=== PATIENT | female | born 1950 | race Caucasian/White ===

== ENCOUNTER → 2017-02-01 | Outpatient (CLI) | payer BC ==
[~2017-02-01] MED LIST: ASPI81TA28 PO; BECL1AER5 NAE; BIOT1CAP8 PO; BIOT300T2 PO; CAL1CHW4 PO; CHOL100010 PO; CLC6 PO; CYCL0.052 OP; IBUP-1105 PO; NAPR1CAP12 PO; OMEG10007 PO; PRED1SUS3 OP; PRT40 PO; QSTP PO; SIMV20TA2 PO; VTMD1000 PO
--- NOTE | 2017-02-01 11:22 | DIAGNOSTIC IMAGING REPORT ---
THYROID ULTRASOUND HISTORY: Nodule MULTI NODULE GOITER COMPARISON: September 15, 2016 FINDINGS: Right lobe: Mild in homogeneity. Several low suspicion sub-5 mm nodular densities and changed. Left lobe: Unlikely prior examination, the current study appears to demonstrate a CT of inhomogeneous tissue occupying the bulk of the left thyroid. This may extend to the left lateral thyroid isthmus. In retrospect this is similar as compared to the prior study. Patient gives a history of multiple biopsies to the left thyroid lobe at outside institution. Isthmus: No nodules. IMPRESSION: 1. Findings consistent with inhomogeneous thyroid tissue bilaterally with a dominant potential nodule or region of the left thyroid similar compared to the prior study. This is biopsy-proven negative per patient. 2. Given the history of a negative biopsy result, and in the absence of multiple discrete targets, it was elected to recommend a six-month follow-up rather than repeat biopsy. 3. Prior biopsy images/targets was not provided. Electronically signed by: Jarrod Robins M.D. 02/01/2017 11:20 AM Dictated Date/Time: 02/01/2017 11:14 AM
== END | disposition home or self-care (01) ==
LOC: C.ULTR 09:18
PROVIDERS: ATTEND Internal Medicine Endocrinology, Diabetes & Metabolism
DX: E04.2 Nontoxic multinodular goiter (principal)

== ENCOUNTER 2017-02-28 16:18 | Inpatient (IN) | payer BC ==
[~2017-02-28] VITALS: Ht 154.9 cm; Wt 59.5 kg
[~2017-02-28 16:18] MED LIST changes: -BECL1AER5 NAE; -BIOT1CAP8 PO; -BIOT300T2 PO; -CAL1CHW4 PO; -CHOL100010 PO; -CLC6 PO; -IBUP-1105 PO; -NAPR1CAP12 PO; -OMEG10007 PO; -PRED1SUS3 OP; -VTMD1000 PO
[2017-02-28] MEDS ORDERED: KETOROLAC TROMETHAMINE 30 MG/ML VIAL IV STA (16:51)
[2017-02-28] MEDS ORDERED: MoRPHine SULFATE 2 MG/ML CARP IV STA (16:51)
[2017-02-28] MEDS ORDERED: ONDANSETRON INJ 2 MG/ML 2 ML VIAL IV STA ×2 (16:51→19:32)
[2017-02-28 17:02] LABS: BASO % 0.1 %; BASO ABS # 0.01 K/uL (0-0.2); COMPLETE YES; EOS % 0.3 %; HEMATOCRIT 40.2 % (37-47); IG% 0.3 %; LYMPH % 12.5 %; MEAN CELL VOLUME 83.8 fL (80-100); MEAN CORPUSCULAR HEMOGLOBIN 29.2 pg (25-34); MEAN CORPUSCULAR HGB CONC 34.8 g/dl (32-36); MEAN PLATELET VOLUME 9.3 fL (7.4-10.4); MONO % 9.2 %; NEUT % 77.6 %; PLATELET COUNT 214 K/uL (130-400); WHITE BLOOD COUNT 7.18 K/uL (4.8-10.8)
[2017-02-28] MEDS ORDERED: BECL1AER5 NAE (17:02)
[2017-02-28] MEDS ORDERED: CAL1CHW4 PO (17:02)
[2017-02-28] MEDS ORDERED: OMEG10007 PO (17:02)
[2017-02-28] MEDS ORDERED: BIOT300T2 PO (17:02)
[2017-02-28] MEDS ORDERED: VTMD1000 PO (17:02)
[2017-02-28] MEDS ORDERED: PRED1SUS3 OP (17:02)
[2017-02-28] MEDS ORDERED: NAPR1CAP12 PO (17:02)
[2017-02-28 17:14] LABS: PROTHROMBIN TIME (PATIENT) 10.6 SECONDS (9.0-12.0)
[2017-02-28 17:16] LABS: ALT/SGPT 40 U/L (12-78); AST/SGOT 24 U/L (15-37); BLOOD UREA NITROGEN 10 mg/dl (7-18); BUN/CREATININE RATIO 12.5 (10-20); CARBON DIOXIDE 29 mmol/L (21-32); CHLORIDE 106 mmol/L (98-107); CREATININE 0.78 mg/dl (0.60-1.20); GLUCOSE 94 mg/dl (70-99); MAGNESIUM 2.5 mg/dl (1.8-2.4); POTASSIUM 3.5 mmol/L (3.5-5.1); SODIUM 140 mmol/L (136-145)
[2017-02-28 17:21] LABS: ALB/GLOB RATIO 0.9 (0.9-2); ALKALINE PHOSPHATASE 76 U/L (45-117)
--- NOTE | 2017-02-28 18:33 | DIAGNOSTIC IMAGING REPORT ---
LEFT RIBS UNILATERAL WITH PA CHEST CLINICAL HISTORY: Left-sided chest pain. Short of breath. COMPARISON STUDY: Chest 10/28/2014. FINDINGS: No pleural effusions. The heart is enlarged. Low lung volumes. Diffuse interstitial thickening persists. Left basilar density with a possible trace left pleural effusion. No rib fractures. No pneumothorax. IMPRESSION: 1. No rib fractures. No pneumothorax. 2. Suspect a trace left pleural effusion with patchy densities within the left lung base. This could represent atelectasis or pneumonia. 3. Diffuse interstitial thickening, unchanged. Electronically signed by: Alonzo Blackmon M.D. 02/28/2017 6:31 PM Dictated Date/Time: 02/28/2017 6:29 PM
[2017-02-28] MEDS ORDERED: MoRPHine SULFATE 2 MG/ML CARP ONE (19:19)
[2017-02-28] MEDS ORDERED: SODIUM CHLORIDE 0.9% 500ML 500 ML IV STA ×2 (19:32→19:41)
[2017-02-28] MEDS ORDERED: DiphenhydrAMINE HCL 50 MG/ML VIAL IV STA ×2 (19:32→20:33)
[2017-02-28] MEDS ORDERED: NALOXONE HCL 0.4 MG/1 ML VIAL/CARP IV STA (19:34)
[2017-02-28] MEDS ORDERED: DiphenhydrAMINE HCL 50 MG/ML VIAL ONE (19:39)
[2017-02-28] MEDS ORDERED: NALOXONE HCL 0.4 MG/1 ML VIAL/CARP ONE (19:40)
[2017-02-28] MEDS ORDERED: DEXAMETHASONE SOD INJ 10 MG/ML VIAL IV ONE (19:45)
[2017-02-28] MEDS ORDERED: SUCRALFATE 1 GM/10 ML UDC PO ONE (20:45)
--- NOTE | 2017-02-28 21:07 | EMERGENCY ROOM VISIT NOTE ---
ED Visit Note First contact with patient: 16:23 Staff note: I have reviewed the Patients chart and have discussed this case with my PA. I generally agree with the ED note and findings.
[2017-02-28] MEDS ORDERED: CALCIUM CARBONATE 500 MG CHEWABLE PO PRN (21:15)
--- NOTE | 2017-02-28 21:27 | DIAGNOSTIC IMAGING REPORT ---
CHEST CT WITHOUT CONTRAST CT DOSE: 434.91 mGy.cm HISTORY: Left-sided chest pain - contrast allergy TECHNIQUE: Multiaxial CT images of the chest were performed without contrast. COMPARISON: Chest 02/28/2017. FINDINGS: No fractures within the visualized osseous structures. No pneumothorax. The central airways are patent. Patchy bibasilar densities. The upper lung zones are clear. No pericardial effusion. The heart is normal in size. The unenhanced liver and spleen are unremarkable. Cholecystectomy. Visualized adrenal glands are within normal limits. No significant mediastinal or hilar lymphadenopathy. Trace left pleural fluid. Normal caliber thoracic aorta. IMPRESSION: 1. No rib fractures. No pneumothorax. 2. Patchy bibasilar densities which may represent atelectasis or pneumonia. 3. Trace left pleural effusion. Electronically signed by: Alonzo Blackmon M.D. 02/28/2017 9:25 PM Dictated Date/Time: 02/28/2017 9:19 PM
[2017-02-28] MEDS ORDERED: MAGNESIUM HYDROXIDE SUSP 30 ML UDC PO PRN (21:30)
[2017-02-28] MEDS ORDERED: POLYETHYLENE (MIRALAX) 17 GM PACK PO PRN (21:30)
[2017-02-28] MEDS ORDERED: KETOROLAC TROMETHAMINE 15 MG/ML VIAL IV PRN (21:30)
[2017-02-28] MEDS ORDERED: ALUMINUM/MAGNESIUM/SIMETH (MAALOX MAX) 30 ML UDC PO PRN (21:30)
[2017-02-28] MEDS ORDERED: ACETAMINOPHEN 325 MG TAB PO PRN (21:30)
[2017-02-28] MEDS ORDERED: METOPROLOL TARTRATE 1 MG/ML VIAL IV PRN (21:30)
[2017-02-28] MEDS ORDERED: ONDANSETRON INJ 2 MG/ML 2 ML VIAL IV PRN (21:30)
--- NOTE | 2017-02-28 21:32 | Progress Note ---
Progress Note Date of Service Feb 28, 2017. Progress Note Patient came in with c/o left upper chest pain while she was fishing. No associated symptoms. Went to PCP office, EKG changes ? - repeated it no changes , but was sent to ER for evaluation. In ED, was given IV morphine---> became bradycardic in 30-40s transiently and than received IV Benadryl, narcan, dexamethasone and she later went into Atrial fibrillation with RVR 120s. On my evaluation, c/o right sided pain--> says pain completely shifted from left side to right side. Hurts when takes deep breaths. EXAM: Gen: AAOX3, distress secondary to pain Lungs- AEBE, no wheezing, rhonchi, crackles Heart- A fib with rvr; Superficial palpation- she shouts in pain- both sides of chest Ext- No edema Abd- soft, non tender, non distended, BS present A/P: PLEURITIC CHEST PAIN- Initially left side (upper) while she was fishing--sudden in onset with no associated findings and now the pain has entirely shifted to right side per patient ? D/D considered: Cardiac less likely as EKG- no acute abn, Troponin x 1 negative , reproducible, atypical chest pain, Respiratory---> but no associated symptoms and pain was sudden in onset; PE less likely as D dimer negative Muscular ??? --> patient shouts in pain even when I touch her superficially. No rash noted -CT scan chest ordered by ED physician---> follow up -IV Morphine--> developed a reaction to it. -IV Toradol 15 mg q 6 hours prn for pain DRUG ALLERGIC TO MORPHINE Received IV Morphine for chest pain in ED---> HR dropped to 40s transiently--> Received IV benadryl, dexamethasone, narcan--> went into A fib -Avoid narcotics- allergy to be added to her list ATRIAL FIBRILLATION WITH RVR -Likely secondary to above. New onset. No prior hx . ? during surgery per her EKG- A fib with RVR 120s HR -IV Metoprolol PRN -Echocardiogram, Troponin x 3, EKG in AM DVT PROPHYLAXIS DISPOSITION Observation telemetry
--- NOTE | 2017-02-28 21:35 | History and Physical ---
History & Physical Date & Time of Service: Feb 28, 2017 at 21:10 Chief Complaint: Chest Pain Primary Care Physician: Oswaldo Ga D.O. History of Present Illness Source: patient, family, clinic records, hospital records Patient seen and examined. 66 year old female with PMHx of Sjogren's and HLD presents to the ED complaining of chest pain beginning prior to arrival. Patient was fishing with her when she developed left sided chest pain, that was pleuritic in nature and very tender to palpation. She went to her PCP who referred her to the ED for further evaluation. Patient reports earlier today she had epigastric pain and took Rolaids which alleviated the pain. She states she had similar pain a few years ago and had a negative stress test. She denies fevers, chills, URI symptoms, SOB, nausea, vomiting, diarrhea, dysuria, calf pain and edema. In the ED VS were stable, EKG was nonischemic troponin and ddimer were negative. She received morphine for pain and developed chest pressure and bradycardia. She received Narcan, IV Benadryl and dexamethasone, patient is now in afib. She reports the pain is now on the right side of her chest and very tender to palpation. She will be observed for further workup and treatment. Past Medical/Surgical History Medical Problems: (1) delivery delivered Status: Chronic (2) HLD (hyperlipidemia) Status: Chronic (3) Hypothyroidism Status: Chronic (4) Sjoegren syndrome Status: Chronic Surgical Problems: (1) H/O bilateral breast reduction surgery Status: Chronic (2) H/O colonoscopy Status: Chronic (3) H/O sinus surgery Status: Chronic (4) History of appendectomy Status: Chronic (5) History of total abdominal hysterectomy Status: Chronic (6) S/P cholecystectomy Status: Chronic Family History Diabetes mellitus FH: cancer FH: heart disease Hypertension Social History Smoking Status: Never Smoker Alcohol Use: none Marital Status: Housing status: lives with family Immunizations History of Influenza Vaccine: No History of Tetanus Vaccine?: No History of Pneumococcal: No History of Hepatitis B Vaccine: No Allergies Coded Allergies: Iodinated Contrast Media (Verified Allergy, Unknown, HIVES, 02/28/17) Risedronate (Verified Allergy, Unknown, HIVES TROUBLE SWALLOWING, 02/28/17) Oxycodone (Verified Adverse Reaction, Mild, NAUSEA, 02/28/17) Home Medications Scheduled Aspirin (Aspirin Ec), 81 MG PO DAILY Beclomethasone Dipropionate (N (Qnasl), 2 SPRY MIRIAN DAILY Biotin (Biotin), 1 TAB PO DAILY Cholecalciferol (Vitamin D3), 1,000 UNITS PO DAILY Fish Oil ([place]-3), 1 CAP PO DAILY Prednisolone Acetate (Ophth) (Pred Forte 1% Oph), 1 DROPS OP QID Simvastatin (Zocor), 20 MG PO HS Scheduled PRN Bird Carb & Mag Hydrox-Simeth (Rolaids Advanced 1000-200-40 mg), 1 TAB PO DIRECTED PRN for Indigestion Naproxen Sodium (Aleve), 220 MG PO DIRECTED PRN for Pain Review of Systems Constitutional: No chills, No fever Eyes: No worsening of vision ENT: No nasal symptoms Respiratory: No cough, No shortness of breath Cardiovascular: + chest pain, No edema, No palpitations Abdomen: No constipation, No diarrhea, No nausea, No pain, No vomiting Musculoskeletal: No calf pain, No swelling Genitourinary - Female: No dysuria Neurologic: No numbness/tingling, No vertigo Psychiatric: No anxiety Endocrine: No excessive thirst, No fatigue Hematologic / Lymphatic: No abnormal bleeding/bruising, No clotting problems Integumentary: No itch, No rash Allergic / Immunologic: No environmental allergies Physical Exam Vital Signs Date Time Temp Pulse Resp B/P Pulse Ox O2 Delivery O2 Flow Rate FiO2 02/28/17 19:43 116 17 121/78 95 Room Air 02/28/17 19:29 141 02/28/17 19:29 43 02/28/17 17:57 76 20 126/82 97 Room Air 02/28/17 16:27 66 02/28/17 16:22 97 Room Air 02/28/17 16:22 37.0 73 28 119/77 97 Room Air 02/28/17 16:22 98 Room Air General Appearance: + pertinent finding (WD/WN 66 year old female lying in bed in mild distress with family at bedside ) Head: normocephalic, atraumatic Eyes: PERRL, sclerae normal ENT: normal ENT inspection, hearing grossly normal Neck: supple, no JVD Respiratory/Chest: lungs clear, normal breath sounds, no respiratory distress, no accessory muscle use, + pertinent finding (tenderness to minimal palpation diffusely over chest, no rashes ) Cardiovascular: no edema, no gallop, no JVD, no murmur, normal peripheral pulses, + tachycardia (regular rhythm ) Abdomen/GI: normal bowel sounds, non tender, soft Back: normal inspection, no muscle spasm Extremities/Musculoskelatal: no calf tenderness, normal capillary refill, no pedal edema Neurologic/Psych: alert, oriented x 3, + pertinent finding (no focal deficits noted on gross exam ) Skin: normal color, warm/dry, no rash Lymphatic: no adenopathy Diagnostics Laboratory Results Results Past 24 Hours Test 02/28/17 16:00 02/28/17 16:59 Range/Units White Blood Count 7.18 4.8-10.8 K/uL Red Blood Count 4.80 4.2-5.4 M/uL Hemoglobin 14.0 12.0-16.0 g/dL Hematocrit 40.2 37-47 % Mean Corpuscular Volume 83.8 80-100 fL Mean Corpuscular Hemoglobin 29.2 25-34 pg Mean Corpuscular Hemoglobin Concent 34.8 32-36 g/dl Platelet Count 214 130-400 K/uL Mean Platelet Volume 9.3 7.4-10.4 fL Neutrophils (%) (Auto) 77.6 % Lymphocytes (%) (Auto) 12.5 % Monocytes (%) (Auto) 9.2 % Eosinophils (%) (Auto) 0.3 % Basophils (%) (Auto) 0.1 % Neutrophils # (Auto) 5.57 1.4-6.5 K/uL Lymphocytes # (Auto) 0.90 1.2-3.4 K/uL Monocytes # (Auto) 0.66 0.11-0.59 K/uL Eosinophils # (Auto) 0.02 0-0.5 K/uL Basophils # (Auto) 0.01 0-0.2 K/uL RDW Standard Deviation 40.5 36.4-46.3 fL RDW Coefficient of Variation 13.3 11.5-14.5 % Immature Granulocyte % (Auto) 0.3 % Immature Granulocyte # (Auto) 0.02 0.00-0.02 K/uL Prothrombin Time 10.6 9.0-12.0 SECONDS Prothromb Time International Ratio 1.0 0.9-1.1 Activated Partial Thromboplast Time 26.3 21.0-31.0 SECONDS Partial Thromboplastin Ratio 1.0 D-Dimer 410 0-500 ug/L FEU Sodium Level 140 136-145 mmol/L Potassium Level 3.5 3.5-5.1 mmol/L Chloride Level 106 98-107 mmol/L Carbon Dioxide Level 29 21-32 mmol/L Anion Gap 5.0 3-11 mmol/L Blood Urea Nitrogen 10 7-18 mg/dl Creatinine 0.78 0.60-1.20 mg/dl Est Creatinine Clear Calc Drug Dose 61.5 ml/min Estimated GFR () 93.1 Estimated GFR (Non- 80.3 BUN/Creatinine Ratio 12.5 10-20 Random Glucose 94 70-99 mg/dl Calcium Level 10.0 8.5-10.1 mg/dl Magnesium Level 2.5 1.8-2.4 mg/dl Total Bilirubin 0.5 0.2-1 mg/dl Aspartate Amino Transf (AST/SGOT) 24 15-37 U/L Alanine Aminotransferase (ALT/SGPT) 40 12-78 U/L Alkaline Phosphatase 76 45-117 U/L Total Creatine Kinase 53 26-192 U/L Creatine Kinase MB < 0.5 0.5-3.6 ng/ml Creatine Kinase MB Ratio 0-3.0 Total Protein 9.4 6.4-8.2 gm/dl Albumin 4.5 3.4-5.0 gm/dl Globulin 4.9 2.5-4.0 gm/dl Albumin/Globulin Ratio 0.9 0.9-2 Lipase 234 73-393 U/L Bedside Troponin I 0.000 0-0.045 ng/ml Diagnostic Radiology RIBS/CXR Per radiologist read: IMPRESSION: 1. No rib fractures. No pneumothorax. 2. Suspect a trace left pleural effusion with patchy densities within the left lung base. This could represent atelectasis or pneumonia. 3. Diffuse interstitial thickening, unchanged. EKG EKG #1 NSR 69 BPM, QTc 454 EKG #2 Afib with RVR 127 BPM, QTc 499 Impression Assessment and Plan 66 year old female presents to the ED complaining of left sided chest pain, extremely tender to palpation, worse with inspiration. Workup negative, received morphine for per and developed bradycardia to the 30s. Received Narcan , dexamethasone, and Benadryl and now in afib PLEURITIC CHEST PAIN -observation in tele -Workup: negative troponin, ddimer making PE or ACS less likely -no rashes, ? musculoskeletal in nature -CT chest pending -warm compresses -Toradol for pain control -CBC, PRP in AM ATRIAL FIBRILLATION -became bradycardic following morphine use received dexamethasone, Benadryl and Narcan, now in afib rate in the 120s. -EKG with Afib -no on exam tachycardia but regular -IVF hydration -Lopressor 5mg IV q6h prn HR >110 -Serial Muriel, EKGs -aspirin daily -monitor in tele -Check echo MORPHINE DRUG ALLERGY -transient bradycardia s/p morphine administration SJGREN'S SYNDROME -continue eye drops HLD -continue Statin HYPOTHYROIDISM -not currently on medications -check TSH DVT PROPHYLAXIS: Sq lovenox CODE STATUS: FULL CODE DISPO:observation pending further workup Patient seen in collaboration with Dr. Sri Moore
[2017-02-28] MEDS ORDERED: IBUPROFEN 200 MG TAB PO PRN (21:45)
[2017-02-28] MEDS ORDERED: ENOXAPARIN 40 MG/0.4 ML SYR SC SCH (22:00)
[2017-02-28] MEDS ORDERED: IV FLUIDS COMPLETED PRN (22:15)
[2017-02-28 22:35] VITALS: BP 107/76; PULSE 141; TEMP 37; O2SAT 95; Ht 154.9 cm; Wt 59.5 kg
[2017-02-28] MEDS: NSS + 20MEQ KCL 1000ML 1,000 ML IV SCH (23:57)
[2017-03-01] VITALS (11 sets, daily range): BP systolic 84–135; BP diastolic 58–75; PULSE 45–121; TEMP 36.6–37; O2SAT 94–97
--- NOTE | 2017-03-01 00:01 | EMERGENCY ROOM VISIT NOTE ---
History First contact with patient: 16:23 Chief Complaint: CHEST PAIN Stated Complaint: PLEURITIC CHEST PAIN Nursing Triage Summary: Patient to Ed via ALS from [facility] for cardiac assessment, states "I woke up this morning with some GERD but I have a history of that and i chalked it up to my sjogren's. My and I went fishing and around 1230 I just started with this bad pain on my right side under my ribcage, and a little in the front of my chest. It feels like I got hit with a bat." Patient received 4 ASA and 2 nitro without relief. Patient denies other cardiac s/s, denies significant cardiac hx History of Present Illness The patient is a 66 year old female who presents to the Emergency Department via EMS for evaluation of her LEFT sided chest pain. She reports that she noticed some discomfort in her abdomen this morning. She took Rolaids which did seem to help with her symptoms. She went fishing with her and developed sudden stabbing LEFT sided chest pain. She reports the pain is worse with movement and deep breaths. She eventually contacted EMS as she reports that her symptoms became unbearable. She received 4 aspirin and 2 nitroglycerin in route to the emergency Department without relief of symptoms. She reports no history of NV or cardiac disease. She denies any fevers or chills. She reports no recent upper respiratory infections or cough. She rates her current discomfort as an 8/10. She denies any radiation of pain. She denies any headaches, dizziness, lightheadedness, nausea, or brash, abdominal pain, medication, melena, hematuria, or dysuria. Patient reports a significant past medical history of Sjogren syndrome Review of Systems A complete 10-point Review of Systems was discussed with the patient, with pertinent positives and negatives listed in the History of Present Illness. All remaining Review of Systems questions can be considered negative unless otherwise specified. Past Medical/Surgical History Medical Problems: (1) delivery delivered (2) HLD (hyperlipidemia) (3) Hypothyroidism (4) Pleuritic chest pain (5) Sjoegren syndrome Surgical Problems: (1) H/O bilateral breast reduction surgery (2) H/O colonoscopy (3) H/O sinus surgery (4) History of appendectomy (5) History of total abdominal hysterectomy (6) S/P cholecystectomy Family History Diabetes mellitus FH: cancer FH: heart disease Hypertension Social History Smoking Status: Never Smoker Alcohol Use: none Marital Status: Housing Status: lives with significant other Current/Historical Medications Scheduled Aspirin (Aspirin Ec), 81 MG PO DAILY Beclomethasone Dipropionate (N (Qnasl), 2 SPRY MIRIAN DAILY Biotin (Biotin), 1 TAB PO DAILY Cholecalciferol (Vitamin D3), 1,000 UNITS PO DAILY Fish Oil ([place]-3), 1 CAP PO DAILY Prednisolone Acetate (Ophth) (Pred Forte 1% Oph), 1 DROPS OP QID Simvastatin (Zocor), 20 MG PO HS Scheduled PRN Bird Carb & Mag Hydrox-Simeth (Rolaids Advanced 1000-200-40 mg), 1 TAB PO DIRECTED PRN for Indigestion Naproxen Sodium (Aleve), 220 MG PO DIRECTED PRN for Pain Allergies Coded Allergies: Iodinated Contrast Media (Verified Allergy, Unknown, HIVES, 02/28/17) Risedronate (Verified Allergy, Unknown, HIVES TROUBLE SWALLOWING, 02/28/17) Oxycodone (Verified Adverse Reaction, Mild, NAUSEA, 02/28/17) Physical Exam Vital Signs Date Time Temp Pulse Resp B/P Pulse Ox O2 Delivery O2 Flow Rate FiO2 02/28/17 19:43 116 17 121/78 95 Room Air 02/28/17 19:29 141 02/28/17 19:29 43 02/28/17 17:57 76 20 126/82 97 Room Air 02/28/17 16:27 66 02/28/17 16:22 97 Room Air 02/28/17 16:22 37.0 73 28 119/77 97 Room Air 02/28/17 16:22 98 Room Air Pain Rating (0-10): 8 Physical Exam VITAL SIGNS - Vital signs and nursing notes were reviewed. GENERAL - 66-year-old female appearing her stated age who is in no acute distress. Communicates well with provider and answers questions appropriately. LUNGS - Chest wall symmetric without accessory muscle use, intercostals retractions, or central cyanosis. Normal vesicular breath sounds CTA B/L. No wheezes, rales, or rhonchi appreciated. CARDIAC - RRR with S1/S2. No murmur, rubs, or gallops appreciated. Moderate reproducible tenderness to palpation appreciated over the LEFT-sided anterior and axillary chest wall. ABDOMEN - Abdominal contour flat and without pulsations or visible masses. BS normoactive all four quadrants. No tenderness, palpable masses, hepatosplenomegaly, or ascites noted. EXTREMITIES - No clubbing or peripheral cyanosis. No pretibial edema present. +3 /5 radial and dorsalis pedis pulses palpated throughout. +5/5 strength noted in UE/LE bilaterally. NEUROLOGIC - Cranial nerves II through XII grossly intact. Sensory intact to light touch throughout. PSYCH - A&Ox3 and cooperates fully with examiner. Pt is very pleasant and interacts well with examiner. Medical Decision & Procedures ER Provider Diagnostic Interpretation: Radiological imaging and reports were reviewed by myself. Radiologist's Interpretation as follows: LEFT RIBS UNILATERAL WITH PA CHEST CLINICAL HISTORY: Left-sided chest pain. Short of breath. COMPARISON STUDY: Chest 10/28/2014. FINDINGS: No pleural effusions. The heart is enlarged. Low lung volumes. Diffuse interstitial thickening persists. Left basilar density with a possible trace left pleural effusion. No rib fractures. No pneumothorax. IMPRESSION: 1. No rib fractures. No pneumothorax. 2. Suspect a trace left pleural effusion with patchy densities within the left lung base. This could represent atelectasis or pneumonia. 3. Diffuse interstitial thickening, unchanged. CHEST CT WITHOUT CONTRAST CT DOSE: 434.91 mGy.cm HISTORY: Left-sided chest pain - contrast allergy TECHNIQUE: Multiaxial CT images of the chest were performed without contrast. COMPARISON: Chest 02/28/2017. FINDINGS: No fractures within the visualized osseous structures. No pneumothorax. The central airways are patent. Patchy bibasilar densities. The upper lung zones are clear. No pericardial effusion. The heart is normal in size. The unenhanced liver and spleen are unremarkable. Cholecystectomy. Visualized adrenal glands are within normal limits. No significant mediastinal or hilar lymphadenopathy. Trace left pleural fluid. Normal caliber thoracic aorta. IMPRESSION: 1. No rib fractures. No pneumothorax. 2. Patchy bibasilar densities which may represent atelectasis or pneumonia. 3. Trace left pleural effusion. Laboratory Results 02/28/17 16:00 Red Blood Count 4.80, Mean Corpuscular Volume 83.8, Mean Corpuscular Hemoglobin 29.2, Mean Corpuscular Hemoglobin Concent 34.8, Mean Platelet Volume 9.3, Neutrophils (%) (Auto) 77.6, Lymphocytes (%) (Auto) 12.5, Monocytes (%) (Auto) 9.2, Eosinophils (%) (Auto) 0.3, Basophils (%) (Auto) 0.1, Neutrophils # (Auto) 5.57, Lymphocytes # (Auto) 0.90, Monocytes # (Auto) 0.66, Eosinophils # (Auto) 0.02, Basophils # (Auto) 0.01 02/28/17 16:00 Test 02/28/17 16:00 02/28/17 16:59 White Blood Count 7.18 K/uL (4.8-10.8) Red Blood Count 4.80 M/uL (4.2-5.4) Hemoglobin 14.0 g/dL (12.0-16.0) Hematocrit 40.2 % (37-47) Mean Corpuscular Volume 83.8 fL (80-100) Mean Corpuscular Hemoglobin 29.2 pg (25-34) Mean Corpuscular Hemoglobin Concent 34.8 g/dl (32-36) Platelet Count 214 K/uL (130-400) Mean Platelet Volume 9.3 fL (7.4-10.4) Neutrophils (%) (Auto) 77.6 % Lymphocytes (%) (Auto) 12.5 % Monocytes (%) (Auto) 9.2 % Eosinophils (%) (Auto) 0.3 % Basophils (%) (Auto) 0.1 % Neutrophils # (Auto) 5.57 K/uL (1.4-6.5) Lymphocytes # (Auto) 0.90 K/uL (1.2-3.4) Monocytes # (Auto) 0.66 K/uL (0.11-0.59) Eosinophils # (Auto) 0.02 K/uL (0-0.5) Basophils # (Auto) 0.01 K/uL (0-0.2) RDW Standard Deviation 40.5 fL (36.4-46.3) RDW Coefficient of Variation 13.3 % (11.5-14.5) Immature Granulocyte % (Auto) 0.3 % Immature Granulocyte # (Auto) 0.02 K/uL (0.00-0.02) Prothrombin Time 10.6 SECONDS (9.0-12.0) Prothromb Time International Ratio 1.0 (0.9-1.1) Activated Partial Thromboplast Time 26.3 SECONDS (21.0-31.0) Partial Thromboplastin Ratio 1.0 D-Dimer 410 ug/L FEU (0-500) Anion Gap 5.0 mmol/L (3-11) Est Creatinine Clear Calc Drug Dose 61.5 ml/min Estimated GFR () 93.1 Estimated GFR (Non- 80.3 BUN/Creatinine Ratio 12.5 (10-20) Calcium Level 10.0 mg/dl (8.5-10.1) Magnesium Level 2.5 mg/dl (1.8-2.4) Total Bilirubin 0.5 mg/dl (0.2-1) Aspartate Amino Transf (AST/SGOT) 24 U/L (15-37) Alanine Aminotransferase (ALT/SGPT) 40 U/L (12-78) Alkaline Phosphatase 76 U/L (45-117) Total Creatine Kinase 53 U/L (26-192) Creatine Kinase MB < 0.5 ng/ml (0.5-3.6) Creatine Kinase MB Ratio (0-3.0) Total Protein 9.4 gm/dl (6.4-8.2) Albumin 4.5 gm/dl (3.4-5.0) Globulin 4.9 gm/dl (2.5-4.0) Albumin/Globulin Ratio 0.9 (0.9-2) Lipase 234 U/L (73-393) Bedside Troponin I 0.000 ng/ml (0-0.045) Medications Administered Medications (Trade) Dose Ordered Sig/Efe Route Start Time Stop Time Status Last Admin Dose Admin Ketorolac Tromethamine (Toradol Inj) 30 mg NOW STAT IV 02/28/17 16:51 02/28/17 16:54 DC 02/28/17 18:22 30 MG Morphine Sulfate (MoRPHine SULFATE INJ) 2 mg NOW STAT IV 02/28/17 16:51 02/28/17 16:54 DC 02/28/17 19:14 2 MG Ondansetron HCl (Zofran Inj) 4 mg NOW STAT IV 02/28/17 16:51 02/28/17 16:54 DC 02/28/17 18:22 4 MG Ondansetron HCl (Zofran Inj) 4 mg NOW STAT IV 02/28/17 19:32 02/28/17 19:33 DC 02/28/17 19:41 4 MG Diphenhydramine HCl 12.5 mg 12.5 mg NOW STAT IV 02/28/17 19:32 02/28/17 19:33 DC 02/28/17 19:41 12.5 MG Sodium Chloride (Nss 500ml) 500 ml @ 999 mls/hr Q31M STAT IV 02/28/17 19:32 02/28/17 20:02 DC 02/28/17 19:41 999 MLS/HR Naloxone HCl 0.4 mg 0.4 mg NOW STAT IV 02/28/17 19:34 02/28/17 19:35 DC 02/28/17 19:41 0.4 MG Sodium Chloride (Nss 500ml) 500 ml @ 999 mls/hr Q31M STAT IV 02/28/17 19:41 02/28/17 20:11 DC 02/28/17 20:10 999 MLS/HR Dexamethasone Sodium Phosphate (Decadron Inj) 10 mg NOW ONCE IV 02/28/17 19:45 02/28/17 19:46 DC 02/28/17 20:10 10 MG Diphenhydramine HCl (Benadryl Inj) 12.5 mg NOW STAT IV 02/28/17 20:33 02/28/17 20:34 DC 02/28/17 20:50 12.5 MG Procedure Patient was placed on the cardiac specialist and monitored throughout the entire extent of their stay. In addition, the patient's pulse oximetry was monitored throughout the entire stay. Any abnormalities or aberrancies were addressed appropriately. ECG Indication: chest pain Rate (beats per minute): 69 Rhythm: normal sinus Findings: no acute ischemic change, no ectopy Change: no significant change Change: Repeat EKG demonstrates atrial fibrillation with rapid ventricular response at a rate of 127 beats for minute. This is changed from EKG earlier this evening. ED Course Patient was seen and evaluated by myself. Labs were drawn, saline lock in place. EKG and chest x-rays were obtained. Patient was ordered 30 mg Toradol, 2 mg morphine, and 4 mg Zofran intravenously. EKG and chest x-ray with ribs results as above. Laboratory results demonstrate no acute leukocytosis, worrisome anemia, or bandemia. The patient has no significant electrolyte abnormalities. Cardiac enzymes are negative. Troponin is negative. The patient was reevaluated. She was complaining of worsening pain to the LEFT- sided chest. The patient declined any medication to this point. She was offered the Toradol which she accepted. She was reevaluated and repeat troponin was ordered. The patient has worsening pain despite the Toradol. She was offered her morphine which she did accept. She took 2 mg morphine and formerly grams Zofran. Repeat troponin was negative. I was summoned by nursing staff as the patient is now complaining of epigastric discomfort described as a "squeezing" sensation. She is bradycardic with a heart rate in the 30s she is not hypoxic. She is presyncopal. I attending was summoned who evaluated the patient with me during this episode. The patient was treated with 0.4 mg Narcan, 12.5 mg Benadryl, a 500 mL normal saline bolus, and 10 mg Decadron intravenously. The patient had complete resolve of epigastric discomfort. A CT of the chest without contrast was ordered as the patient has an allergy and her d-dimer was not elevated. She did have return of similar symptoms. She was treated with an additional 12.5 mg Benadryl with complete resolve of symptoms. She was hydrated with an additional 500 mL bolus. I did discuss the case with medicine who agrees to admit the patient for further evaluation and management. Patient admitted in stable condition. Medical Decision Given the patient's presentation and stated complaint, I did elect to perform the above-mentioned workup. The patient presents to the emergency department with LEFT-sided pain. Her pain is reproducible in nature. She also describes it as pleuritic and worse with movement. She received nitroglycerin and aspirin without relief of symptoms. She was initially offered pain medication which she declined. Cardiac evaluation was assessed. Her EKG and cardiac enzymes were completely negative. X-ray demonstrates a small LEFT sided pleural effusion. The patient did eventually agree to 2 mg morphine for pain as she was in significant discomfort. After the 2 mg of morphine, the patient became bradycardic and had intense pain. She then developed A. fib afterwards. Her pressure remained stable. She remained clinically unchanged. She responded to Narcan, Benadryl, and Zofran. The patient had persistent pain to the LEFT sided ribs. She remained in A. fib despite fluids. I suspected the patient has likely experienced an acute histamine reaction to the IV Benadryl resulting in vagal response with bradycardia and near-syncope. I'm uncertain as to why this would have rebounded into atrial fibrillation, and for this to internal medicine and cardiology. She had a repeat episode of the epigastric discomfort that completely resolved and Benadryl which confirms my suspicion. She was ordered Carafate as I do suspect the majority of her symptoms are coming from an intense gastritis. Regardless, the patient will need to be admitted for close monitoring. She was admitted in stable condition to the hospitalist program. In the evaluation and treatment of this patient, the following differential diagnoses were considered: NV, ASC, Dysrhythmia, Angina, Mediastinitis, GERD, Esophagitis, PE, Pneumonia, Bronchitis, Costochondritis, Rib Fracture, Zoster. Impression Primary Impression: Pleuritic chest pain Additional Impressions: Vagal bradycardia New onset atrial fibrillation Departure Information Dispostion Admitted as an inpatient Condition FAIR Referrals Oswaldo Ga D.O. (PCP) Forms HOME CARE DOCUMENTATION FORM, IMPORTANT VISIT INFORMATION Patient Instructions [facility] Problem Qualifiers
[2017-03-01] MEDS ORDERED: SODIUM CHLORIDE 0.65% NA SOLN 45 ML (OCEAN) ONE (00:03)
[2017-03-01] MEDS ORDERED: SODIUM CHLORIDE 0.9% 500ML 500 ML IV ONE (00:15)
[2017-03-01] MEDS ORDERED: SODIUM CHLORIDE 0.65% NA SOLN 45 ML (OCEAN) PRN (00:30)
[2017-03-01] MEDS ORDERED: NURSING VERBAL MED ORDER ONE ×2 (02:00)
[2017-03-01] MEDS ORDERED: SODIUM CHLORIDE 0.9% 1000ML 250 ML IV ONE (02:15)
[2017-03-01 05:26] LABS: BUN/CREATININE RATIO 9.3 (10-20); CALCIUM 8.6 mg/dl (8.5-10.1); CHOLESTEROL/HDL RATIO 3.5; CREATININE 0.96 mg/dl (0.60-1.20); POTASSIUM 4.3 mmol/L (3.5-5.1); THYROID STIMULATING HORMONE 0.507 uIu/ml (0.300-4.500)
[2017-03-01 06:51] LABS: HEMATOCRIT 34.8 % (37-47); MEAN CELL VOLUME 84.9 fL (80-100); MEAN CORPUSCULAR HEMOGLOBIN 28.8 pg (25-34); MEAN CORPUSCULAR HGB CONC 33.9 g/dl (32-36); PLATELET COUNT 204 K/uL (130-400); WHITE BLOOD COUNT 6.92 K/uL (4.8-10.8)
[2017-03-01] MEDS: CHOLECALCIFEROL 1000 INTER.UNIT TAB PO SCH (07:37)
[2017-03-01] MEDS: FLUTICASONE PROPIONATE NA SPR 16 GM BTL NAE SCH (07:37)
[2017-03-01] MEDS: NSS + 20MEQ KCL 1000ML 1,000 ML IV SCH ×2 (07:37→19:04)
[2017-03-01] MEDS: ASPIRIN 81 MG ECTAB PO SCH (07:37)
[2017-03-01] MEDS: OMEGA-3 (PURIFIED FISH OIL) 1 GM CAP PO SCH (07:37)
[2017-03-01] MEDS: PrednisoLONE ACET 1% OP SUSP 5 ML BTL OP SCH ×4 (07:38→21:00)
[2017-03-01] MEDS ORDERED: PERFLUTREN LIPID MICROSPHERE (DEFINITY) IV ONE (08:26)
[2017-03-01] MEDS ORDERED: ASPIRIN 81 MG ECTAB PO SCH (09:00)
[2017-03-01] MEDS ORDERED: NON-FORMULARY MEDICATION (Biotin 1 TAB) PO SCH (09:00)
--- NOTE | 2017-03-01 10:20 | ECHOCARDIOGRAM REPORT ---
*NOTICE TO RECEIVING REPUBLICAN AGENCY This information is strictly Confidential and protected under [place] law. [place] law prohibits you from making any further disclosure of this information unless further disclosure is expressly permitted by the written consent of the person to whom it pertains or is authorized by law. A general authorization for the release of medical or other information is not sufficient for this purpose. Hospital accepts no responsibility if the information is made available to any other person, INCLUDING THE PATIENT. Interpretation Summary * Name: JANY STOREY Study Date: 03/01/2017 06:53 AM BP: 99/62 mmHg * Patient Location: [facility]\S\N275\S\2 HR: 59 * : 1950 (M/d/yyyy) Gender: Female Height: 61 in * Age: 66 yrs Ethnicity: [place] Weight: 136 lb * Ordering Physician: Cheli Díaz * Referring Physician: Makenzie Rubio * Performed By: Any Post * * Reason For Study: A-FIB * BSA: 1.6 m2 * Grossly normal valvular structure and function. * -- Conclusions -- * The left ventricle is normal in size. * Left ventricular systolic function is normal. * Ejection Fraction = 65-70%. * The right ventricular systolic function is normal. * The left atrial size is normal. * Right atrial size is normal. * Grossly normal valvular structure and function. Procedure Details * A complete two-dimensional transthoracic echocardiogram was performed (2D, M-mode, Doppler and color flow Doppler). * The study was technically difficult. * A contrast injection of Definity was performed to improve assessment of LV function. * Contrast was injected into an intravenous site in the left arm. * One vial of Definity ultrasound contrast was diluted in normal saline to a total volume of 10 ml. A total of '2.5' ml of solution was administered during imaging. * Lot # [id number] of Definity utilized for procedure. * Expiration date 02/20. * The attending nurse who injected the contrast agent was MUMTAZ MALDONADO RN. Left Ventricle * The left ventricle is normal in size. * There is normal left ventricular wall thickness. * Ejection Fraction = 65-70%. * Left ventricular systolic function is normal. * The left ventricular wall motion is normal. Right Ventricle * The right ventricle is normal size. * The right ventricular systolic function is normal. Atria * The left atrial size is normal. * Right atrial size is normal. * The interatrial septum is intact with no evidence for an atrial septal defect. Mitral Valve * The mitral valve is grossly normal. * Significant mitral regurgitation is absent. Tricuspid Valve * The tricuspid valve is not well visualized. * Significant tricuspid regurgitation is absent. Aortic Valve * The aortic valve is normal in structure and function. Pulmonic Valve * The pulmonic valve is not well visualized. * There is no significant pulmonary regurgitation. Great Vessels * The aortic root and proximal ascending aorta are normal sized. Pericardium/Pleural * There is no pericardial effusion. MMode 2D Measurements and Calculations IVSd 0.98 cm IVSs 1.4 cm LVIDd 4.2 cm LVIDs 2.7 cm LVPWd 0.98 cm LVPWs 1.1 cm IVS/LVPW 0.99 FS 37.0 % EDV(Teich) 80.5 ml ESV(Teich) 26.4 ml EF(Teich) 67.2 % EDV(cubed) 76.4 ml ESV(cubed) 19.1 ml EF(cubed) 75.0 % % IVS thick 45.4 % % LVPW thick 16.4 % LV mass(C)d 136.1 grams LV mass(C)dI 84.9 grams/m\S\2 LV mass(C)s 104.8 grams LV mass(C)sI 65.3 grams/m\S\2 CO(Teich) 2.9 l/min CI(Teich) 1.8 l/min/m\S\2 SV(Teich) 54.1 ml SI(Teich) 33.8 ml/m\S\2 CO(cubed) 3.0 l/min CI(cubed) 1.9 l/min/m\S\2 SV(cubed) 57.3 ml SI(cubed) 35.7 ml/m\S\2 ACS 1.4 cm LA dimension 3.4 cm asc Aorta Diam 2.8 cm LVOT diam 1.6 cm LVOT area 2.1 cm\S\2 LVAd ap4 26.5 cm\S\2 LVLd ap4 7.2 cm EDV(MOD-sp4) 80.0 ml LVAs ap4 12.6 cm\S\2 LVLs ap4 5.1 cm ESV(MOD-sp4) 26.0 ml EF(MOD-sp4) 67.5 % LVAd ap2 17.4 cm\S\2 LVLd ap2 6.4 cm EDV(MOD-sp2) 39.0 ml LVAs ap2 8.9 cm\S\2 LVLs ap2 5.7 cm ESV(MOD-sp2) 13.0 ml EF(MOD-sp2) 66.7 % CO(MOD-sp4) 2.9 l/min CI(MOD-sp4) 1.8 l/min/m\S\2 SV(MOD-sp4) 54.0 ml SI(MOD-sp4) 33.7 ml/m\S\2 CO(MOD-sp2) 1.4 l/min CI(MOD-sp2) 0.86 l/min/m\S\2 SV(MOD-sp2) 26.0 ml SI(MOD-sp2) 16.2 ml/m\S\2 Doppler Measurements and Calculations MV E max bernice 71.6 cm/sec MV A max bernice 70.6 cm/sec MV E/A 1.0 MV dec time 0.21 sec Ao V2 max 136.3 cm/sec Ao max PG 7.4 mmHg Ao max PG (full) 2.5 mmHg DANIELLA(V,A) 1.7 cm\S\2 DANIELLA(V,D) 1.7 cm\S\2 LV V1 max PG 5.0 mmHg LV V1 max 111.6 cm/sec PA V2 max 55.3 cm/sec PA max PG 1.2 mmHg PI end-d bernice 95.7 cm/sec
--- NOTE | 2017-03-01 11:02 | Progress Note ---
Subjective Date of Service: Mar 01, 2017. Subjective Pt evaluation today including: conversation w/ patient, physical exam, lab review, review of studies, review of inpatient medication list Saw/examined the patient in room 287 She states that she came in with left sided chest pain worse with inhalation, could not take a deep breath in +anxious mood today Last night went into A. Fib - rate was controlled She was given IV fluids and she converted to sinus rhythm, but became bradycardic Currently HRs in the 50s Problem List Medical Problems: (1) New onset atrial fibrillation Status: Acute (2) Vagal bradycardia Status: Acute Review of Systems Constitutional: + weakness, No chills, No fever Respiratory: + dyspnea at rest, + dyspnea on exertion, + shortness of breath, No cough, No hemoptysis, No sputum, No wheezing Cardiac: + chest pain, No edema, No palpitations Abdomen: + nausea, No diarrhea, No pain, No vomiting Musculoskeletal: + joint pain (back pain) Heme: No abnormal bleeding/bruising Medications Current Inpatient Medications Medications (Trade) Dose Ordered Sig/Efe Route Start Time Stop Time Status Last Admin Dose Admin Aspirin (Ecotrin Tab) 81 mg DAILY PO 03/01/17 09:00 03/31/17 08:59 03/01/17 07:37 81 MG Cholecalciferol (Vitamin D Tab) 1,000 inter.unit DAILY PO 03/01/17 09:00 03/31/17 08:59 03/01/17 07:37 1,000 INTER.UNIT Fish Oil ([place]-3 (Purified Fish Oil) Cap) 1 gm DAILY PO 03/01/17 09:00 03/31/17 08:59 03/01/17 07:37 1 GM Prednisolone Acetate (Pred Forte 1% Oph Susp) 1 drops QID OP 03/01/17 09:00 03/31/17 08:59 03/01/17 07:38 1 DROPS Simvastatin (Zocor Tab) 20 mg HS PO 03/01/17 21:00 03/31/17 20:59 Fluticasone Propionate (Flonase Nasal [place]) 2 sprays DAILY MIRIAN 03/01/17 09:00 03/31/17 08:59 03/01/17 07:37 2 SPRAYS Calcium Carbonate (Tums Chew Tab) 500 mg TIDM PRN PO 02/28/17 21:15 03/30/17 21:14 Enoxaparin Sodium (Lovenox Inj) 40 mg Q24H SC 02/28/17 22:00 03/30/17 21:59 02/28/17 23:59 40 MG Acetaminophen (Tylenol Tab) 650 mg Q4H PRN PO 02/28/17 21:30 03/30/17 21:29 Al Hydrox/Mg Hydrox/Simethicone (Maalox Max Susp) 15 ml Q4H PRN PO 02/28/17 21:30 03/30/17 21:29 Magnesium Hydroxide (Milk Of Magnesia Susp) 30 ml Q12H PRN PO 02/28/17 21:30 03/30/17 21:29 Ondansetron HCl (Zofran Inj) 4 mg Q6H PRN IV 02/28/17 21:30 03/30/17 21:29 Polyethylene (Miralax Powder Packet) 17 gm DAILY PRN PO 02/28/17 21:30 03/30/17 21:29 Metoprolol Tartrate 5 mg 5 mg Q6 PRN IV 02/28/17 21:30 03/30/17 21:29 02/28/17 22:50 5 MG Potassium Chloride/Sodium Chloride (Nss + 20meq KCl 1000ml) 1,000 ml @ 100 mls/hr Q10H IV 02/28/17 22:30 03/30/17 22:29 03/01/17 07:37 100 MLS/HR Ketorolac Tromethamine (Toradol Inj) 15 mg Q6H PRN IV 02/28/17 21:30 03/05/17 21:29 Ibuprofen (Advil Tab) 400 mg TID PRN PO 02/28/17 21:45 03/30/17 21:44 Miscellaneous (Iv Fluids Completed) 1 ea PRN PRN N/A 02/28/17 22:15 02/28/18 22:14 Sodium Chloride ([place] Nasal [place]) 1 sprays PRN PRN NA 03/01/17 00:30 03/31/17 00:29 Objective Vital Signs Date Time Temp Pulse Resp B/P Pulse Ox O2 Delivery O2 Flow Rate FiO2 03/01/17 07:34 36.6 50 18 110/69 96 Room Air 03/01/17 05:18 59 20 99/62 95 Room Air 03/01/17 04:00 Room Air 03/01/17 03:10 62 99/62 03/01/17 02:15 62 99/62 03/01/17 01:00 66 105/71 03/01/17 00:35 121 18 101/69 95 Room Air 03/01/17 00:15 84/63 03/01/17 00:00 Room Air 02/28/17 22:50 141 107/76 02/28/17 22:35 37.0 141 20 107/76 95 Room Air 02/28/17 19:43 116 17 121/78 95 Room Air 02/28/17 19:29 141 02/28/17 19:29 43 02/28/17 17:57 76 20 126/82 97 Room Air 02/28/17 16:27 66 02/28/17 16:22 97 Room Air 02/28/17 16:22 37.0 73 28 119/77 97 Room Air 02/28/17 16:22 98 Room Air Physical Exam General Appearance: no apparent distress Eyes: normal inspection ENT: hearing grossly normal Neck: supple Respiratory/Chest: no respiratory distress, no accessory muscle use, + pertinent finding (diminished breath sounds at L base) Cardiovascular: no edema, no gallop, no JVD, no murmur, + bradycardia Abdomen: normal bowel sounds, non tender, soft Extremities: normal inspection, no pedal edema Neurologic/Psychiatric: no motor/sensory deficits, alert, normal mood/affect Skin: normal color Laboratory Results Last 24 Hours Test 02/28/17 16:00 02/28/17 16:59 02/28/17 22:20 03/01/17 04:05 White Blood Count 7.18 K/uL 6.92 K/uL Red Blood Count 4.80 M/uL 4.10 M/uL Hemoglobin 14.0 g/dL 11.8 g/dL Hematocrit 40.2 % 34.8 % Mean Corpuscular Volume 83.8 fL 84.9 fL Mean Corpuscular Hemoglobin 29.2 pg 28.8 pg Mean Corpuscular Hemoglobin Concent 34.8 g/dl 33.9 g/dl Platelet Count 214 K/uL 204 K/uL Mean Platelet Volume 9.3 fL 10.0 fL Neutrophils (%) (Auto) 77.6 % Lymphocytes (%) (Auto) 12.5 % Monocytes (%) (Auto) 9.2 % Eosinophils (%) (Auto) 0.3 % Basophils (%) (Auto) 0.1 % Neutrophils # (Auto) 5.57 K/uL Lymphocytes # (Auto) 0.90 K/uL Monocytes # (Auto) 0.66 K/uL Eosinophils # (Auto) 0.02 K/uL Basophils # (Auto) 0.01 K/uL RDW Standard Deviation 40.5 fL 41.9 fL RDW Coefficient of Variation 13.3 % 13.5 % Immature Granulocyte % (Auto) 0.3 % Immature Granulocyte # (Auto) 0.02 K/uL Prothrombin Time 10.6 SECONDS Prothromb Time International Ratio 1.0 Activated Partial Thromboplast Time 26.3 SECONDS Partial Thromboplastin Ratio 1.0 D-Dimer 410 ug/L FEU Sodium Level 140 mmol/L 145 mmol/L Potassium Level 3.5 mmol/L 4.3 mmol/L Chloride Level 106 mmol/L 115 mmol/L Carbon Dioxide Level 29 mmol/L 26 mmol/L Anion Gap 5.0 mmol/L 4.0 mmol/L Blood Urea Nitrogen 10 mg/dl 9 mg/dl Creatinine 0.78 mg/dl 0.96 mg/dl Est Creatinine Clear Calc Drug Dose 61.5 ml/min 50.0 ml/min Estimated GFR () 93.1 72.4 Estimated GFR (Non- 80.3 62.5 BUN/Creatinine Ratio 12.5 9.3 Random Glucose 94 mg/dl 165 mg/dl Calcium Level 10.0 mg/dl 8.6 mg/dl Magnesium Level 2.5 mg/dl Total Bilirubin 0.5 mg/dl Aspartate Amino Transf (AST/SGOT) 24 U/L Alanine Aminotransferase (ALT/SGPT) 40 U/L Alkaline Phosphatase 76 U/L Total Creatine Kinase 53 U/L Creatine Kinase MB < 0.5 ng/ml Creatine Kinase MB Ratio Total Protein 9.4 gm/dl Albumin 4.5 gm/dl Globulin 4.9 gm/dl Albumin/Globulin Ratio 0.9 Lipase 234 U/L Bedside Troponin I 0.000 ng/ml Troponin I < 0.015 ng/ml 0.031 ng/ml Nucleated RBC Absolute Count (auto) 0.00 K/uL Nucleated Red Blood Cells % 0.0 % Triglycerides Level 70 mg/dl Cholesterol Level 127 mg/dl HDL Cholesterol 36 mg/dl LDL Cholesterol, Calculated 77 mg/dl VLDL Cholesterol, Calculated 14 mg/dl Cholesterol/HDL Ratio 3.5 Thyroid Stimulating Hormone (TSH) 0.507 uIu/ml Assessment and Plan This is a 66 year old female with PMH of HLD, Sjogren's presents with pleuritic chest pain and developed new onset A. Fib, now with bradycardia New Onset A. Fib Possible Tachy-Gerson? patient developed A. fib with rapid ventricular response overnight given IVFs and potassium with good response she is now in sinus rhythm Now developing sinus bradycardia - HRs went down to the 30s, but now are up in the 50s echo performed showing no acute findings cardiology consulted for further input Pleuritic Chest Pain possible pneumonia? Chest CT shows bibasilar densities possible pneumonia vs. atelectasis there are no other signs of infection, no leukocytosis, no fevers the pain is actually reproducible; muscle strain is possible also c/o heartburn added Protonix Toradol PRN HLD continue statin DVT ppx Lovenox FULL CODE
[2017-03-01] MEDS ORDERED: ENOXAPARIN 1 MG/KG SQ SCH (15:00)
[2017-03-01] MEDS ORDERED: ENOXAPARIN 60 MG/0.6 ML SYR SQ SCH (16:00)
--- NOTE | 2017-03-01 16:10 | CARDIOLOGY CONSULTATION ---
DATE OF CONSULTATION: 03/01/2017 REFERRING PHYSICIAN: Charity Vincent. REASON FOR CONSULTATION: Atrial fibrillation. HISTORY OF PRESENT ILLNESS: This is a 66-year-old female who has a history of short Sjogren's syndrome who has been treated by Dr. Claros in the past. She was in her usual state of health and went fishing with her . When they were done and she was starting to get into their truck, she developed left-sided pleuritic type discomfort. She was seen in the Emergency Department and admitted. Her cardiac markers have been negative. Her first EKG showed no acute changes; however, after hospital admission, she has had paroxysmal atrial fibrillation with RVR that has been treated with p.r.n. metoprolol. Her chest pain is very reproducible with palpation and with deep inspiration. Her chest x-ray and subsequent CT of the chest suggests a small left pleural effusion and atelectasis or consolidation within the left lower lung. She has had no fever, chills, no white count elevation. She has had no recent fever, chills. No other muscle aches or joint pains. ALLERGIES: IODINE CONTRAST MEDIUM, OXYCODONE. PAST MEDICAL HISTORY: As outlined above, she has a history of Sjogren's syndrome and no prior history of heart disease including cardiac arrhythmias. She is treated for hyperlipidemia. She has had a breast reduction surgery. No other significant medical history. No prior history of strokes, diabetes or hypertension. FAMILY MEDICAL HISTORY: Significant for diabetes. SOCIAL HISTORY: She is a never smoker. She is , lives with her . REVIEW OF SYSTEMS: A 10-point review of systems is negative except for the history of chief complaint. PHYSICAL EXAMINATION: GENERAL: She is alert and oriented. VITAL SIGNS: Blood pressure is 120/70, pulse is regular and she is in a sinus rhythm at a heart rate of 48 beats per minute. She is afebrile. HEENT: She is normocephalic. Pupils are equal and reactive to light. Extraocular muscles are intact bilaterally. NECK: The neck veins are flat. Carotids have good upstrokes bilaterally without bruits. Thyroid is nonpalpable. RESPIRATORY: Breath sounds equal bilaterally and clear to auscultation. CARDIOVASCULAR: Heart has a regular rhythm. Normal S1, S2. No S3, S4. No cardiac rubs or murmurs. GASTROINTESTINAL: Abdomen is soft, nontender without organomegaly. EXTREMITIES: Free of edema, digit clubbing, or cyanosis. NEUROLOGIC: Grossly intact. SKIN: Warm to touch. LYMPH NODES: Negative to palpation. LABORATORY DATA: Hemoglobin is 14. WBC count is 7.18. Creatinine 0.78, BUN is 10. Troponins have been negative. TSH is within normal limits. Sed rate is pending. IMPRESSION: 1. Chest pain which is pleuritic and may be due to pleurisy with the patient having Sjogren's syndrome. 2. Paroxysmal atrial fibrillation. RECOMMENDATIONS: I have taken the liberty of obtaining a Lyme's titer and a sed rate. She has been on p.r.n. ibuprofen for pain. I will start around the clock 400 mg t.i.d. She has not seen a sheet metal engineer for a while since Dr. Claros has retired and I think it would be best that we have her evaluated today to see if her discomfort is related to Sjogren's syndrome. I suspect that she does have pleurisy and possibly an early pericarditis with no pericardial fluid that may be causing her to have atrial fibrillation. She would not tolerate a beta karlos due to her low heart rates and I think it is best that we just continue to treat her on a p.r.n. basis with metoprolol. Her echocardiogram shows normal LV function and no pericardial effusion. We will follow along with you during her hospital stay. MICKI
[2017-03-01 16:13] LABS: HEMATOCRIT 32.6 % (37-47); IG% 0.1 %; LYMPH % 9.3 %; MEAN CELL VOLUME 84.2 fL (80-100); MEAN CORPUSCULAR HEMOGLOBIN 29.2 pg (25-34); MEAN PLATELET VOLUME 9.7 fL (7.4-10.4); MONO % 6.5 %; NEUT % 84.1 %; PLATELET COUNT 182 K/uL (130-400); RED BLOOD COUNT 3.87 M/uL (4.2-5.4); WHITE BLOOD COUNT 10.78 K/uL (4.8-10.8)
[2017-03-01 16:16] LABS: COMPLETE YES; MEAN CORPUSCULAR HGB CONC 34.7 g/dl (32-36)
[2017-03-01] MEDS: HEPARIN 25,000 UNIT/500ML D5W 500 ML IV PRN ×2 (16:28→23:13)
[2017-03-01 16:30] LABS: INR 1.1 (0.9-1.1); PARTIAL THROMBOPLASTIN RATIO 1.1; PROTHROMBIN TIME (PATIENT) 11.4 SECONDS (9.0-12.0)
[2017-03-01 19:33] LABS: LYME DISEASE AB IGM NEG (NEG)
[2017-03-01 19:35] LABS: LYME DISEASE AB IGG NEG (NEG)
[2017-03-01] MEDS: IBUPROFEN 200 MG TAB PO SCH (20:59)
[2017-03-01] MEDS: SIMVASTATIN 20 MG TAB PO SCH (20:59)
[2017-03-01] MEDS ORDERED: METOPROLOL TARTRATE 25 MG TAB PO SCH (21:00)
[2017-03-01 21:14] LABS: URINE APPEARANCE CLEAR (CLEAR); URINE BILIRUBIN NEG (NEG); URINE COLOR YELLOW; URINE NITRITE NEG (NEG); URINE SPECIFIC GRAVITY 1.011 (1.000-1.030); UROBILINOGEN NEG (NEG); ZZUR CULT IF INDIC CLEAN CATCH NO
[2017-03-01 21:17] LABS: MANUAL MICROSCOPIC REQUIRED? NO; REVIEW REQ? NO
[2017-03-01 22:46] LABS: PARTIAL THROMBOPLASTIN RATIO 1.7
[2017-03-01] MEDS ORDERED: HEPARIN IV BOLUS 2,000 UNIT in SYRINGE 0 ML IV ONE (23:00)
[2017-03-02] VITALS (10 sets, daily range): BP systolic 114–145; BP diastolic 63–82; PULSE 46–54; TEMP 36.4–36.9; O2SAT 92–98
[2017-03-02] MEDS: NSS + 20MEQ KCL 1000ML 1,000 ML IV SCH ×2 (04:03→14:21)
[2017-03-02 05:19] LABS: HEMATOCRIT 32.9 % (37-47); MEAN CELL VOLUME 84.8 fL (80-100); MEAN CORPUSCULAR HEMOGLOBIN 28.4 pg (25-34); MEAN CORPUSCULAR HGB CONC 33.4 g/dl (32-36); MEAN PLATELET VOLUME 9.4 fL (7.4-10.4); PLATELET COUNT 150 K/uL (130-400); RED BLOOD COUNT 3.88 M/uL (4.2-5.4); WHITE BLOOD COUNT 8.52 K/uL (4.8-10.8)
[2017-03-02 05:40] LABS: PARTIAL THROMBOPLASTIN RATIO 2.7
[2017-03-02 05:51] LABS: BUN/CREATININE RATIO 13.7 (10-20); CALCIUM 8.9 mg/dl (8.5-10.1); CREATININE 0.78 mg/dl (0.60-1.20); MAGNESIUM 2.4 mg/dl (1.8-2.4); POTASSIUM 4.6 mmol/L (3.5-5.1)
[2017-03-02] MEDS: HEPARIN 25,000 UNIT/500ML D5W 500 ML IV PRN ×3 (06:19→23:16)
[2017-03-02] MEDS: PrednisoLONE ACET 1% OP SUSP 5 ML BTL OP SCH ×4 (07:57→20:48)
[2017-03-02] MEDS: ASPIRIN 81 MG ECTAB PO SCH (07:58)
[2017-03-02] MEDS: CHOLECALCIFEROL 1000 INTER.UNIT TAB PO SCH (07:58)
[2017-03-02] MEDS: PANTOprazole SOD 40 MG TAB PO SCH (07:58)
[2017-03-02] MEDS: OMEGA-3 (PURIFIED FISH OIL) 1 GM CAP PO SCH (07:58)
[2017-03-02] MEDS: FLUTICASONE PROPIONATE NA SPR 16 GM BTL NAE SCH (07:59)
[2017-03-02] MEDS: IBUPROFEN 200 MG TAB PO SCH ×3 (08:00→20:49)
[2017-03-02] MEDS ORDERED: COLCHICINE 0.6 MG TAB PO ONE (11:45)
--- NOTE | 2017-03-02 11:51 | PROGRESS NOTE ---
DATE: 03/02/2017 FOLLOWUP VISIT SUBJECTIVE: The patient is a 66-year-old female with Sjogren's syndrome, who presented with pleuritic left-sided chest discomfort. Her sed rate is 50. Her echocardiogram showed no pericardial effusion, but her chest x-ray shows a small left pleural effusion. Yesterday, we started her on ibuprofen which has relieved most of her discomfort but she still has a bit of residual pain when she takes a deep breath and moves around. Her heart rhythm has been stable. She has had no additional atrial fibrillation since counsel yesterday. She has maintained sinus bradycardia and at night she goes into the 30s and 40-beat per minute range. She is asymptomatic in regard to the bradycardia and has had no dizziness or lightheadedness. ALLERGIES: TO IODINATED CONTRAST AND OXYCODONE. OBJECTIVE: VITAL SIGNS: Blood pressure is 128/74, pulse is regular at 50 beats per minute. She is afebrile. HEENT: She is normocephalic. Pupils are equal and reactive to light. Extraocular muscles are intact bilaterally. NECK: The neck veins are flat. Carotids have good upstrokes bilaterally without bruits. Thyroid is nonpalpable. RESPIRATORY: Breath sounds equal bilaterally. There are no rales, rhonchi or rubs. CARDIOVASCULAR: Heart has a regular rhythm. There is no cardiac rub. GASTROINTESTINAL: Abdomen is soft, nontender, without organomegaly. EXTREMITIES: Free of edema, digit clubbing, or cyanosis. NEUROLOGIC: Grossly intact. SKIN: Warm to touch. LYMPH NODES: Negative to palpation. LABORATORY DATA: Potassium is 4.6, creatinine 0.78. IMPRESSION: 1. Pleuritic chest pain, most likely due to pleurisy. 2. Sjogren's syndrome. 3. Paroxysmal atrial fibrillation. RECOMMENDATIONS: In addition to the ibuprofen, I will start the patient on colchicine 0.6 mg twice daily. Rheumatology consult is pending. Otherwise, the patient is clinically stable.
--- NOTE | 2017-03-02 12:42 | Progress Note ---
Subjective Date of Service: Mar 02, 2017. Subjective Pt evaluation today including: conversation w/ patient, physical exam, lab review, review of studies, review of inpatient medication list Saw/examined the patient in room 287 Had some chest pain and shortness of breath overnight cardiac enzymes negative, EKG showed sinus bradycardia very anxious about her chest pain Son and in the room with the patient, and I explained everything to the family Problem List Medical Problems: (1) New onset atrial fibrillation Status: Acute (2) Vagal bradycardia Status: Acute Review of Systems Constitutional: No chills, No fever, No weakness Respiratory: + shortness of breath, No cough, No dyspnea on exertion, No sputum , No wheezing Cardiac: + chest pain, No edema, No palpitations Abdomen: No diarrhea, No nausea, No pain, No vomiting Psychiatric: + anxiety Medications Current Inpatient Medications Medications (Trade) Dose Ordered Sig/Efe Route Start Time Stop Time Status Last Admin Dose Admin Cholecalciferol (Vitamin D Tab) 1,000 inter.unit DAILY PO 03/01/17 09:00 03/31/17 08:59 03/02/17 07:58 1,000 INTER.UNIT Fish Oil ([place]-3 (Purified Fish Oil) Cap) 1 gm DAILY PO 03/01/17 09:00 03/31/17 08:59 03/02/17 07:58 1 GM Prednisolone Acetate (Pred Forte 1% Oph Susp) 1 drops QID OP 03/01/17 09:00 03/31/17 08:59 03/02/17 07:57 1 DROPS Simvastatin (Zocor Tab) 20 mg HS PO 03/01/17 21:00 03/31/17 20:59 03/01/17 20:59 20 MG Fluticasone Propionate (Flonase Nasal [place]) 2 sprays DAILY MIRIAN 03/01/17 09:00 03/31/17 08:59 03/01/17 07:37 2 SPRAYS Calcium Carbonate (Tums Chew Tab) 500 mg TIDM PRN PO 02/28/17 21:15 03/30/17 21:14 Acetaminophen (Tylenol Tab) 650 mg Q4H PRN PO 02/28/17 21:30 03/30/17 21:29 Al Hydrox/Mg Hydrox/Simethicone (Maalox Max Susp) 15 ml Q4H PRN PO 02/28/17 21:30 03/30/17 21:29 Magnesium Hydroxide (Milk Of Magnesia Susp) 30 ml Q12H PRN PO 02/28/17 21:30 03/30/17 21:29 03/02/17 10:38 30 ML Ondansetron HCl (Zofran Inj) 4 mg Q6H PRN IV 02/28/17 21:30 03/30/17 21:29 Polyethylene (Miralax Powder Packet) 17 gm DAILY PRN PO 02/28/17 21:30 03/30/17 21:29 Metoprolol Tartrate 5 mg 5 mg Q6 PRN IV 02/28/17 21:30 03/30/17 21:29 02/28/17 22:50 5 MG Potassium Chloride/Sodium Chloride (Nss + 20meq KCl 1000ml) 1,000 ml @ 100 mls/hr Q10H IV 02/28/17 22:30 03/30/17 22:29 03/02/17 04:03 100 MLS/HR Ketorolac Tromethamine (Toradol Inj) 15 mg Q6H PRN IV 02/28/17 21:30 03/05/17 21:29 Miscellaneous (Iv Fluids Completed) 1 ea PRN PRN N/A 02/28/17 22:15 02/28/18 22:14 Sodium Chloride ([place] Nasal [place]) 1 sprays PRN PRN NA 03/01/17 00:30 03/31/17 00:29 Pantoprazole Sodium (Protonix Tab) 40 mg QAM PO 03/02/17 09:00 04/01/17 08:59 03/02/17 07:58 40 MG Ibuprofen 400 mg 400 mg TID PO 03/01/17 21:00 03/31/17 20:59 03/02/17 08:00 400 MG Heparin Sodium/ Dextrose (Heparin 25,000 Unit/500ml D5W) 500 ml @ 20 mls/hr Q24H PRN IV 03/01/17 15:45 03/31/17 15:44 03/02/17 06:19 20 MLS/HR Colchicine (Colchicine Tab) 0.6 mg BID PO 03/02/17 21:00 04/01/17 20:59 Objective Vital Signs Date Time Temp Pulse Resp B/P Pulse Ox O2 Delivery O2 Flow Rate FiO2 03/02/17 11:53 36.7 54 16 133/72 92 Room Air 03/02/17 08:00 Room Air 03/02/17 07:16 36.5 49 16 128/74 95 Room Air 03/02/17 04:11 36.6 47 18 145/82 96 Room Air 03/02/17 04:00 Room Air 03/02/17 04:00 36.4 46 16 145/75 97 Room Air 03/02/17 00:00 Room Air 03/01/17 23:56 36.8 45 16 124/75 94 Room Air 03/01/17 20:08 37.0 47 16 135/71 96 Room Air 03/01/17 20:00 Room Air 03/01/17 16:00 Room Air 03/01/17 15:14 36.7 52 16 122/65 97 Room Air Physical Exam General Appearance: no apparent distress Respiratory/Chest: lungs clear, normal breath sounds, no respiratory distress, no accessory muscle use, + pertinent finding (+chest wall tenderness at the left chostochondral joints) Cardiovascular: + bradycardia Extremities: normal inspection, no pedal edema Neurologic/Psychiatric: no motor/sensory deficits, alert, normal mood/affect Laboratory Results Last 24 Hours Test 03/01/17 15:45 03/01/17 16:03 03/01/17 21:00 03/01/17 22:30 Erythrocyte Sedimentation Rate 50 mm/hr Lyme Disease IgG Antibody NEG Lyme Disease IgM Antibody NEG White Blood Count 10.78 K/uL Red Blood Count 3.87 M/uL Hemoglobin 11.3 g/dL Hematocrit 32.6 % Mean Corpuscular Volume 84.2 fL Mean Corpuscular Hemoglobin 29.2 pg Mean Corpuscular Hemoglobin Concent 34.7 g/dl Platelet Count 182 K/uL Mean Platelet Volume 9.7 fL Neutrophils (%) (Auto) 84.1 % Lymphocytes (%) (Auto) 9.3 % Monocytes (%) (Auto) 6.5 % Eosinophils (%) (Auto) 0.0 % Basophils (%) (Auto) 0.0 % Neutrophils # (Auto) 9.07 K/uL Lymphocytes # (Auto) 1.00 K/uL Monocytes # (Auto) 0.70 K/uL Eosinophils # (Auto) 0.00 K/uL Basophils # (Auto) 0.00 K/uL RDW Standard Deviation 42.2 fL RDW Coefficient of Variation 13.7 % Immature Granulocyte % (Auto) 0.1 % Immature Granulocyte # (Auto) 0.01 K/uL Prothrombin Time 11.4 SECONDS Prothromb Time International Ratio 1.1 Activated Partial Thromboplast Time 27.5 SECONDS 45.0 SECONDS Partial Thromboplastin Ratio 1.1 1.7 Hepatitis C Antibody Screen NEG Urine Color YELLOW Urine Appearance CLEAR Urine pH 7.0 Urine Specific [place] 1.011 Urine Protein NEG Urine Glucose (UA) NEG Urine Ketones NEG Urine Occult Blood NEG Urine Nitrite NEG Urine Bilirubin NEG Urine Urobilinogen NEG Urine Leukocyte Esterase NEG Test 03/02/17 05:12 03/02/17 10:45 03/02/17 12:00 White Blood Count 8.52 K/uL Red Blood Count 3.88 M/uL Hemoglobin 11.0 g/dL Hematocrit 32.9 % Mean Corpuscular Volume 84.8 fL Mean Corpuscular Hemoglobin 28.4 pg Mean Corpuscular Hemoglobin Concent 33.4 g/dl RDW Standard Deviation 42.9 fL RDW Coefficient of Variation 13.9 % Platelet Count 150 K/uL Mean Platelet Volume 9.4 fL Activated Partial Thromboplast Time 70.0 SECONDS Partial Thromboplastin Ratio 2.7 Sodium Level 145 mmol/L Potassium Level 4.6 mmol/L Chloride Level 115 mmol/L Carbon Dioxide Level 26 mmol/L Anion Gap 4.0 mmol/L Blood Urea Nitrogen 11 mg/dl Creatinine 0.78 mg/dl Est Creatinine Clear Calc Drug Dose 60.7 ml/min Estimated GFR () 93.1 Estimated GFR (Non- 80.3 BUN/Creatinine Ratio 13.7 Random Glucose 110 mg/dl Calcium Level 8.9 mg/dl Magnesium Level 2.4 mg/dl Troponin I 0.023 ng/ml < 0.015 ng/ml Assessment and Plan This is a 66 year old female with PMH of HLD, Sjogren's presents with pleuritic chest pain and developed new onset A. Fib, now with bradycardia New Onset A. Fib with Sinus Bradycardia 03/02 started on IV heparin as per cardiology unfortunately, could not add b-karlos secondary to sinus bradycardia this AM, HRs in the upper 40s 03/01 patient developed A. fib with rapid ventricular response overnight given IVFs and potassium with good response she is now in sinus rhythm Now developing sinus bradycardia - HRs went down to the 30s, but now are up in the 50s echo performed showing no acute findings cardiology consulted for further input Pleuritic Chest Pain 03/02 possibly related to her Sjogren's? will consult rheumatology for further input 03/01 possible pneumonia? Chest CT shows bibasilar densities possible pneumonia vs. atelectasis there are no other signs of infection, no leukocytosis, no fevers the pain is actually reproducible; muscle strain is possible also c/o heartburn added Protonix Toradol PRN HLD continue statin DVT ppx Lovenox FULL CODE
[2017-03-02 13:08] LABS: PARTIAL THROMBOPLASTIN RATIO 1.6
[2017-03-02] MEDS ORDERED: HEPARIN IV BOLUS 2,000 UNIT in SYRINGE 0 ML IV ONE (14:00)
--- NOTE | 2017-03-02 18:14 | Rheumatology Consultation ---
Rheumatology Consultation Date of Consultation: Mar 02, 2017. Requesting Physician: Dr Lynn Attending Physician: Dr Lynn Reason for Consultation: pleuritic chest pain, sjogren's History of Present Illness Mrs Tasha Castillo has known sjogren's and was followed by Dr Vladimir Claros of [facility] rheumatology until 06/2014. she had not returned in the last several yrs because she was overall stable and just did not reschedule an appointment. in reviewing the previous notes she had a high titer SABAS, SSA and had sicca syndrome on restasis at that last visit with Dr Claros. she also dealt with serous fluid in her ears leading to tube placements. she mentions since last visit with him she had developed this upper abd, lower chest pain that was in a band that felt like something was squeezing her and would only last a few minutes to several hrs. at one point felt to be her gall bladder and had stones and cholecystectomy done but the symptoms persisted some. she had also seen GI and questioned if related t o her Sjogren's but then went away. she reports fro the last 1 yr or more was doing okay and just dealing with her dryness. she has a lot of dental disease and uses OTC treatments (ACT products) along with her restasis and refresh tears. about 5 months ago developed allergy to restasis and had to stop it and now on pred eye drops. she also uses tears. she denies significant parotiditis history. never used plaquenil. she does have a history of punctate plugs to her eyes. she reports at the beginning of her diagnosis she had some hip pains but that had gotten better. she is here [facility] because 2 days ago was fishing with her and on way home developed left sided chest pain. she reported it felt like pleurisy that she had 20 yrs ago. stated it hurt to take deep breaths. went home took aleve and was not getting better. she called PCP office and was seen by Makenzie Rubio PA-C> there EKG shwoed some ST changes so was sent to [facility] for eval. while here CXR showed small left pleural effusion, ? pneumonia vs atelactasis. she had CT - small left sided pleural effusion, some atelectasis and no PE. she still ahd the chest pain. the chest pain also started to be both sides as well. yesterday she developed tachycardia and afib and then bradycardia. she was seen by Cardiology - echo was normal with no pericardial effusion. ? pleurisy/pericarditis related to her sjogren's. she is on ibuprofen and started colchicine today and had 1 dose. her chest pain is better and has been up walking around. her heart rate is low at 57. never had any fevers. did not feel sick prior. she has noted some buttock pain recently as well and states now has right sided parotid pain and feels a lump there that is tender. she reports mother had lymphoma. she denies any GI issues at this point. no swollen tender joints. Past Medical/Surgical History Medical History: atrial fibrillation, high cholesterol, other (sjogren's, multinodular goiter) Surgical History: appendectomy, cholecystectomy, hysterectomy, other (breast reduction, thyroid biopsies) Family History father -, high cholesterol mother lymphoma - Social History Smoking Status: Never Smoker History of Alcohol Use: No Marital Status: Housing Status: lives with family Review of Systems Constitutional: No chills, No fever Eyes: + see HPI ENT: + problem reported (dry thraot/mouth, dental disease), + see HPI Respiratory: + see HPI Cardiac: + see HPI Abdomen: + see HPI Musculoskeletal: + see HPI All Other Systems: Reviewed and Negative Allergies Coded Allergies: Iodinated Diagnostic Agents (Verified Allergy, Intermediate, HIVES, ) Risedronate (Verified Allergy, Unknown, HIVES TROUBLE SWALLOWING, 02/28/17) Oxycodone (Verified Adverse Reaction, Mild, NAUSEA, 02/28/17) Medications Current Inpatient Medications Medications (Trade) Dose Ordered Sig/Efe Route Start Time Stop Time Status Last Admin Dose Admin Cholecalciferol (Vitamin D Tab) 1,000 inter.unit DAILY PO 03/01/17 09:00 03/31/17 08:59 03/02/17 07:58 1,000 INTER.UNIT Fish Oil ([place]-3 (Purified Fish Oil) Cap) 1 gm DAILY PO 03/01/17 09:00 03/31/17 08:59 03/02/17 07:58 1 GM Prednisolone Acetate (Pred Forte 1% Oph Susp) 1 drops QID OP 03/01/17 09:00 03/31/17 08:59 4/28/17 07:57 1 DROPS Simvastatin (Zocor Tab) 20 mg HS PO 03/01/17 21:00 03/31/17 20:59 03/01/17 20:59 20 MG Fluticasone Propionate (Flonase Nasal [place]) 2 sprays DAILY MIRIAN 03/01/17 09:00 03/31/17 08:59 03/01/17 07:37 2 SPRAYS Calcium Carbonate (Tums Chew Tab) 500 mg TIDM PRN PO 02/28/17 21:15 03/30/17 21:14 Acetaminophen (Tylenol Tab) 650 mg Q4H PRN PO 02/28/17 21:30 03/30/17 21:29 Al Hydrox/Mg Hydrox/Simethicone (Maalox Max Susp) 15 ml Q4H PRN PO 02/28/17 21:30 03/30/17 21:29 Magnesium Hydroxide (Milk Of Magnesia Susp) 30 ml Q12H PRN PO 02/28/17 21:30 03/30/17 21:29 03/02/17 10:38 30 ML Ondansetron HCl (Zofran Inj) 4 mg Q6H PRN IV 02/28/17 21:30 03/30/17 21:29 Polyethylene (Miralax Powder Packet) 17 gm DAILY PRN PO 02/28/17 21:30 03/30/17 21:29 Metoprolol Tartrate 5 mg 5 mg Q6 PRN IV 02/28/17 21:30 03/30/17 21:29 02/28/17 22:50 5 MG Potassium Chloride/Sodium Chloride (Nss + 20meq KCl 1000ml) 1,000 ml @ 100 mls/hr Q10H IV 02/28/17 22:30 03/30/17 22:29 03/02/17 14:21 100 MLS/HR Ketorolac Tromethamine (Toradol Inj) 15 mg Q6H PRN IV 02/28/17 21:30 03/05/17 21:29 Miscellaneous (Iv Fluids Completed) 1 ea PRN PRN N/A 02/28/17 22:15 02/28/18 22:14 Sodium Chloride ([place] Nasal [place]) 1 sprays PRN PRN NA 03/01/17 00:30 03/31/17 00:29 Pantoprazole Sodium (Protonix Tab) 40 mg QAM PO 03/02/17 09:00 04/01/17 08:59 03/02/17 07:58 40 MG Ibuprofen 400 mg 400 mg TID PO 03/01/17 21:00 03/31/17 20:59 03/02/17 14:20 400 MG Heparin Sodium/ Dextrose (Heparin 25,000 Unit/500ml D5W) 500 ml @ 22 mls/hr [id number] PRN IV 03/01/17 15:45 03/31/17 15:44 03/02/17 06:19 20 MLS/HR Colchicine (Colchicine Tab) 0.6 mg BID PO 03/02/17 21:00 04/01/17 20:59 Physical Exam Date Time Temp Pulse Resp B/P Pulse Ox O2 Delivery O2 Flow Rate FiO2 03/02/17 16:02 36.9 54 18 139/68 98 Room Air 03/02/17 12:00 Room Air 03/02/17 11:53 36.7 54 16 133/72 92 Room Air 03/02/17 08:00 Room Air 03/02/17 07:16 36.5 49 16 128/74 95 Room Air 03/02/17 04:11 36.6 47 18 145/82 96 Room Air 03/02/17 04:00 Room Air 03/02/17 04:00 36.4 46 16 145/75 97 Room Air 03/02/17 00:00 Room Air 03/01/17 23:56 36.8 45 16 124/75 94 Room Air 03/01/17 20:08 37.0 47 16 135/71 96 Room Air 03/01/17 20:00 Room Air General Appearance: WD/WN, no apparent distress Eyes: bilateral eyes EOMI, bilateral eyes normal inspection ENT: hearing grossly normal, + pertinent finding (dry oral mucosa noted on exam , tenderness over right parotid - no discrete mass noted) Respiratory: chest non-tender, lungs clear, normal breath sounds, no respiratory distress Cardiovascular: regular rate, rhythm, no edema, no gallop, no murmur, + bradycardia Abdomen: normal bowel sounds, non tender, soft Musculoskeletal: no synovitis noted normal ROM of hips no left sided trochanteric pain normal hip flexor strength tender over buttock area Skin: normal color, warm/dry, no rash Lymphatic: no adenopathy Laboratory Results Last 24 Hours Test 03/01/17 21:00 03/01/17 22:30 03/02/17 05:12 03/02/17 10:45 Urine Color YELLOW Urine Appearance CLEAR Urine pH 7.0 Urine Specific [place] 1.011 Urine Protein NEG Urine Glucose (UA) NEG Urine Ketones NEG Urine Occult Blood NEG Urine Nitrite NEG Urine Bilirubin NEG Urine Urobilinogen NEG Urine Leukocyte Esterase NEG Activated Partial Thromboplast Time 45.0 SECONDS 70.0 SECONDS Partial Thromboplastin Ratio 1.7 2.7 White Blood Count 8.52 K/uL Red Blood Count 3.88 M/uL Hemoglobin 11.0 g/dL Hematocrit 32.9 % Mean Corpuscular Volume 84.8 fL Mean Corpuscular Hemoglobin 28.4 pg Mean Corpuscular Hemoglobin Concent 33.4 g/dl RDW Standard Deviation 42.9 fL RDW Coefficient of Variation 13.9 % Platelet Count 150 K/uL Mean Platelet Volume 9.4 fL Sodium Level 145 mmol/L Potassium Level 4.6 mmol/L Chloride Level 115 mmol/L Carbon Dioxide Level 26 mmol/L Anion Gap 4.0 mmol/L Blood Urea Nitrogen 11 mg/dl Creatinine 0.78 mg/dl Est Creatinine Clear Calc Drug Dose 60.7 ml/min Estimated GFR () 93.1 Estimated GFR (Non- 80.3 BUN/Creatinine Ratio 13.7 Random Glucose 110 mg/dl Calcium Level 8.9 mg/dl Magnesium Level 2.4 mg/dl Troponin I 0.023 ng/ml < 0.015 ng/ml Test 03/02/17 12:35 Activated Partial Thromboplast Time 42.1 SECONDS Partial Thromboplastin Ratio 1.6 Assessment & Plan Assessment & Plan: assessment: Mrs Castillo is a 66 y/o female with known sjogren's dating back to 2004 with mild presentation mainly consisting of dry eyes and mouth. she presented to [facility] 2 days ago with left sided chest pain that moved to the right with concerns for pleurisy. Cardiac eval was normal but was noted to developed afib and now bradycardia. Cardiology note and hospitalist note reviewed. she is on ibuprofen and started colchicine already. she is feeling better from her chest pain standpoint (pleurisy). she likely had pleurisy from her autoimmune syndrome given no evidence for infectious process. given she is getting better do not see a need for steroids at this point. if she does start to worsen steroid taper starting at 40mg daily would be reasonable. would keep eye on right parotid tenderness - if develops fever may need abx for parotiditis but hopefully gets better with ibuprofen and colchicine. Plan: 1. agree with/continue Ibuprofen TID and colchicine BID 2. may consider steroid taper if symptoms worsen 3. I will arrange outpatient rheumatology appt in the next few weeks to get here re-established with us 4. case was discussed with primary service Dr Lynn 5. thank you for the consult and involving me in this patient's care
[2017-03-02] MEDS: SIMVASTATIN 20 MG TAB PO SCH (20:49)
[2017-03-02] MEDS: COLCHICINE 0.6 MG TAB PO SCH (20:49)
[2017-03-02 20:50] LABS: PARTIAL THROMBOPLASTIN RATIO 2.6
[2017-03-03] MEDS: NSS + 20MEQ KCL 1000ML 1,000 ML IV SCH (00:21)
[2017-03-03 04:03] VITALS: BP 116/72; PULSE 51; TEMP 36.6; O2SAT 96
[2017-03-03 06:30] LABS: PARTIAL THROMBOPLASTIN RATIO 2.4
[2017-03-03 07:33] VITALS: BP 123/69; PULSE 51; TEMP 36.5; O2SAT 94
[2017-03-03 07:54] LABS: HEMATOCRIT 35.3 % (37-47); MEAN CELL VOLUME 84.9 fL (80-100); MEAN CORPUSCULAR HEMOGLOBIN 28.4 pg (25-34); MEAN CORPUSCULAR HGB CONC 33.4 g/dl (32-36); MEAN PLATELET VOLUME 9.4 fL (7.4-10.4); PLATELET COUNT 160 K/uL (130-400); RED BLOOD COUNT 4.16 M/uL (4.2-5.4); WHITE BLOOD COUNT 5.23 K/uL (4.8-10.8)
[2017-03-03 08:00] VITALS: O2SAT 94
[2017-03-03] MEDS: FLUTICASONE PROPIONATE NA SPR 16 GM BTL NAE SCH (08:05)
[2017-03-03] MEDS: COLCHICINE 0.6 MG TAB PO SCH (08:06)
[2017-03-03] MEDS: IBUPROFEN 200 MG TAB PO SCH (08:06)
[2017-03-03] MEDS: OMEGA-3 (PURIFIED FISH OIL) 1 GM CAP PO SCH (08:06)
[2017-03-03] MEDS: PANTOprazole SOD 40 MG TAB PO SCH (08:06)
[2017-03-03] MEDS: PrednisoLONE ACET 1% OP SUSP 5 ML BTL OP SCH (08:07)
[2017-03-03] MEDS: CHOLECALCIFEROL 1000 INTER.UNIT TAB PO SCH (08:07)
[2017-03-03 08:22] LABS: BUN/CREATININE RATIO 12.5 (10-20); CREATININE 0.73 mg/dl (0.60-1.20); MAGNESIUM 2.4 mg/dl (1.8-2.4)
[2017-03-03 08:53] LABS: CALCIUM 8.9 mg/dl (8.5-10.1)
--- NOTE | 2017-03-03 10:27 | PROGRESS NOTE ---
DATE: 03/03/2017 FOLLOWUP VISIT SUBJECTIVE: The patient is a 66-year-old female with a history of Sjogren's syndrome, who presented with pleuritis. The rheumatology consult is appreciated. Since being started on NSAIDs and colchicine, the patient's pain has improved. Early on in her admission, she had rate controlled atrial fibrillation, which I believe was a result of her pleurodynia. She has not had any atrial arrhythmias for the past 48 hours. OBJECTIVE: GENERAL: She is alert and oriented, comfortably sitting in a chair. VITAL SIGNS: Blood pressure 120/69 and pulse is regular at 53 beats per minute. GENERAL: She is afebrile. HEENT: She is normocephalic. Pupils are equal and reactive to light. Extraocular muscles are intact bilaterally. NECK: The neck veins are flat. Carotids have good upstrokes bilaterally without bruits. Thyroid is nonpalpable. RESPIRATORY: Breath sounds equal bilaterally and clear to auscultation. CARDIOVASCULAR: Heart has a regular rhythm. Normal S1 and S2. No S3 or S4. No cardiac rubs or murmurs. GASTROINTESTINAL: Abdomen is soft and nontender without organomegaly. EXTREMITIES: Free of edema, digit clubbing, or cyanosis. NEUROLOGIC: Grossly intact. SKIN: Warm to touch. LYMPH NODES: Negative to palpation. IMPRESSION: 1. Pleurisy and pericarditis. 2. Sjogren's syndrome. 3. Paroxysmal atrial fibrillation. RECOMMENDATIONS: I would continue the ibuprofen and colchicine. At this point, I believe with the addition of NSAIDs, she is at risk for bleeding complications such as GI bleeding and I would recommend that we discontinue the heparin since she has not had any atrial fibrillation for 48 hours. I believe the atrial fibrillation is a result of inflammation from the pericarditis. I will leave her on prophylactic Lovenox for DVT prevention. I encouraged her to ambulate today and if she is feeling well, I believe that she may be discharged to outpatient followup with rheumatology. No long-term anticoagulation is indicated.
[2017-03-03 11:38] VITALS: BP 125/68; PULSE 53; TEMP 36.4; O2SAT 95
[2017-03-03 12:00] VITALS: O2SAT 95
--- NOTE | 2017-03-03 12:46 | Progress Note ---
Subjective Date of Service: Mar 03, 2017. Subjective Pt evaluation today including: conversation w/ patient, physical exam, lab review, review of studies, conversation w/ neuropsychology medical consultant, review of inpatient medication list Saw/examined the patient in room 287 She is doing much better today the pleuritic chest pain has improved She has ambulated with no issues to note Problem List Medical Problems: (1) New onset atrial fibrillation Status: Acute (2) Vagal bradycardia Status: Acute Review of Systems Constitutional: No chills, No fever, No weakness Respiratory: + shortness of breath, No cough, No dyspnea at rest, No dyspnea on exertion, No hemoptysis, No sputum, No wheezing Cardiac: + chest pain, No edema, No palpitations Abdomen: No diarrhea, No nausea, No pain, No vomiting Heme: No abnormal bleeding/bruising Medications Current Inpatient Medications Medications (Trade) Dose Ordered Sig/Efe Route Start Time Stop Time Status Last Admin Dose Admin Cholecalciferol (Vitamin D Tab) 1,000 inter.unit DAILY PO 03/01/17 09:00 03/31/17 08:59 03/03/17 08:07 1,000 INTER.UNIT Fish Oil ([place]-3 (Purified Fish Oil) Cap) 1 gm DAILY PO 03/01/17 09:00 03/31/17 08:59 03/03/17 08:06 1 GM Prednisolone Acetate (Pred Forte 1% Oph Susp) 1 drops QID OP 03/01/17 09:00 03/31/17 08:59 03/03/17 08:07 1 DROPS Simvastatin (Zocor Tab) 20 mg HS PO 03/01/17 21:00 03/31/17 20:59 03/02/17 20:49 20 MG Fluticasone Propionate (Flonase Nasal [place]) 2 sprays DAILY MIRIAN 03/01/17 09:00 03/31/17 08:59 03/03/17 08:05 2 SPRAYS Calcium Carbonate (Tums Chew Tab) 500 mg TIDM PRN PO 02/28/17 21:15 03/30/17 21:14 Acetaminophen (Tylenol Tab) 650 mg Q4H PRN PO 02/28/17 21:30 03/30/17 21:29 Al Hydrox/Mg Hydrox/Simethicone (Maalox Max Susp) 15 ml Q4H PRN PO 02/28/17 21:30 03/30/17 21:29 Magnesium Hydroxide (Milk Of Magnesia Susp) 30 ml Q12H PRN PO 02/28/17 21:30 03/30/17 21:29 03/02/17 10:38 30 ML Ondansetron HCl (Zofran Inj) 4 mg Q6H PRN IV 02/28/17 21:30 03/30/17 21:29 Polyethylene (Miralax Powder Packet) 17 gm DAILY PRN PO 02/28/17 21:30 03/30/17 21:29 Metoprolol Tartrate (Lopressor Iv) 5 mg Q6 PRN IV 02/28/17 21:30 03/30/17 21:29 02/28/17 22:50 5 MG Ketorolac Tromethamine (Toradol Inj) 15 mg Q6H PRN IV 02/28/17 21:30 03/05/17 21:29 Miscellaneous (Iv Fluids Completed) 1 ea PRN PRN N/A 02/28/17 22:15 02/28/18 22:14 Sodium Chloride ([place] Nasal [place]) 1 sprays PRN PRN NA 03/01/17 00:30 03/31/17 00:29 Pantoprazole Sodium (Protonix Tab) 40 mg QAM PO 03/02/17 09:00 04/01/17 08:59 03/03/17 08:06 40 MG Ibuprofen (Advil Tab) 400 mg TID PO 03/01/17 21:00 03/31/17 20:59 03/03/17 08:06 400 MG Colchicine (Colchicine Tab) 0.6 mg BID PO 03/02/17 21:00 04/01/17 20:59 03/03/17 08:06 0.6 MG Enoxaparin Sodium (Lovenox Inj) 40 mg QAM SQ 03/04/17 09:00 04/03/17 08:59 Objective Vital Signs Date Time Temp Pulse Resp B/P Pulse Ox O2 Delivery O2 Flow Rate FiO2 03/03/17 11:38 36.4 53 18 125/68 95 Room Air 03/03/17 08:00 94 Room Air 03/03/17 07:33 36.5 51 18 123/69 94 Room Air 03/03/17 04:03 36.6 51 20 116/72 96 Room Air 03/03/17 04:00 Room Air 03/02/17 23:59 96 Room Air 03/02/17 23:29 36.8 49 18 120/69 96 Room Air 03/02/17 20:00 92 Room Air 03/02/17 19:51 36.7 53 16 114/63 95 Room Air 03/02/17 16:02 36.9 54 18 139/68 98 Room Air 03/02/17 16:00 92 Room Air Physical Exam General Appearance: no apparent distress Respiratory/Chest: lungs clear, normal breath sounds, no respiratory distress, no accessory muscle use, + pertinent finding (chest wall tenderness) Cardiovascular: no edema, no murmur, + bradycardia Abdomen: normal bowel sounds, non tender, soft Extremities: normal inspection, no pedal edema Laboratory Results Last 24 Hours Test 03/02/17 20:25 03/03/17 05:59 03/03/17 07:37 Activated Partial Thromboplast Time 66.5 SECONDS 61.9 SECONDS Partial Thromboplastin Ratio 2.6 2.4 White Blood Count 5.23 K/uL Red Blood Count 4.16 M/uL Hemoglobin 11.8 g/dL Hematocrit 35.3 % Mean Corpuscular Volume 84.9 fL Mean Corpuscular Hemoglobin 28.4 pg Mean Corpuscular Hemoglobin Concent 33.4 g/dl RDW Standard Deviation 43.0 fL RDW Coefficient of Variation 13.9 % Platelet Count 160 K/uL Mean Platelet Volume 9.4 fL Sodium Level 143 mmol/L Potassium Level 4.0 mmol/L Chloride Level 110 mmol/L Carbon Dioxide Level 27 mmol/L Anion Gap 6.0 mmol/L Blood Urea Nitrogen 9 mg/dl Creatinine 0.73 mg/dl Est Creatinine Clear Calc Drug Dose 64.5 ml/min Estimated GFR () 100.9 Estimated GFR (Non- 87.0 BUN/Creatinine Ratio 12.5 Random Glucose 91 mg/dl Calcium Level 8.9 mg/dl Magnesium Level 2.4 mg/dl Assessment and Plan This is a 66 year old female with PMH of HLD, Sjogren's presents with pleuritic chest pain and developed new onset A. Fib, now with bradycardia New Onset A. Fib with Sinus Bradycardia 03/03 will d/c IV heparin no b-karlos due to bradycardia likely A. fib due to inflammation 03/02 started on IV heparin as per cardiology unfortunately, could not add b-karlos secondary to sinus bradycardia this AM, HRs in the upper 40s 03/01 patient developed A. fib with rapid ventricular response overnight given IVFs and potassium with good response she is now in sinus rhythm Now developing sinus bradycardia - HRs went down to the 30s, but now are up in the 50s echo performed showing no acute findings cardiology consulted for further input Pleuritic Chest Pain 03/03 Pleurisy, appreciate rheumatology input, autoimmune component will continue Ibuprofen TID and Colchicine BID outpatient PCP and rheumatology input 03/02 possibly related to her Sjogren's? will consult rheumatology for further input 03/01 possible pneumonia? Chest CT shows bibasilar densities possible pneumonia vs. atelectasis there are no other signs of infection, no leukocytosis, no fevers the pain is actually reproducible; muscle strain is possible also c/o heartburn added Protonix Toradol PRN HLD continue statin DVT ppx Lovenox FULL CODE
[2017-03-03] MEDS ORDERED: CLC6 PO (12:49)
[2017-03-03] MEDS ORDERED: PRT40 PO (12:49)
[2017-03-03] MEDS ORDERED: IBUP-1105 PO (12:49)
--- NOTE | 2017-03-03 12:55 | Discharge Instructions ---
Discharge Instructions Date of Service Mar 03, 2017. Admission Reason for Admission: Pleuritic Chest Pain Discharge Discharge Diagnosis / Problem: Pleurisy, Pleuritic Chest Pain; Sjogren's Syndrome Discharge Goals Goal(s): Decrease discomfort, Improve function, Diagnostic testing, Therapeutic intervention Activity Recommendations Activity Limitations: resume your previous activity . Instructions / Follow-Up Instructions / Follow-Up Please follow-up with Dr. Ga on March 05 @ 2:45PM * You will be discharged on ibuprofen three times a day and colchicine twice daily * You will also be prescribed Protonix for stomach protection * Dr. Ray's office, rheumatology, will call with an appointment date and time * Dr. Grover's office, cardiology, will also call with an appointment date and time Current Hospital Diet Patient's current hospital diet: AHA Diet (Heart Healthy) Discharge Diet Recommended Diet: AHA Diet (Heart Healthy) Pending Studies Studies pending at discharge: no Laboratory Results Lipid Panel Test 03/01/17 04:05 Range/Units Triglycerides Level 70 0-150 mg/dl Cholesterol Level 127 0-200 mg/dl HDL Cholesterol 36 mg/dl Cholesterol/HDL Ratio 3.5 LDL Cholesterol, Calculated 77 mg/dl Medical Emergencies . Who to Call and When: Medical Emergencies: If at any time you feel your situation is an emergency, please call 911 immediately. . Non-Emergent Contact Non-Emergency issues call your: Primary Care Provider, Specialist (Rheumatology ) . . "Provider Documentation" section prepared by Macario Lynn. . VTE Core Measure Inpt VTE Proph given/why not?: Other Anticoagulation (IV heparin)
--- NOTE | 2017-03-03 12:57 | Discharge Summary ---
Discharge Summary Date of Service Mar 03, 2017. 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 Transient Atrial Fibrillation Sinus Bradycardia Medication Reconciliation New Medications: Colchicine (Colcrys) 0.6 Mg Tab 0.6 MG PO BID for 10 Days, #20 TAB Ibuprofen (Ibuprofen) 200 Mg Tab 400 MG PO TID for 10 Days, #60 TAB Pantoprazole (Pantoprazole Sodium) 40 Mg Tab 40 MG PO QAM for 10 Days, #10 TAB Continued Medications: Aspirin (Aspirin Ec) 81 Mg Tab 81 MG PO DAILY Beclomethasone Dipropionate (N (Qnasl) 80 Mcg/Act Aer 2 SPRY MIRIAN DAILY, #8.7 GM 11 Refills Biotin (Biotin) 300 Mcg Tab 1 TAB PO DAILY Bird Carb & Mag Hydrox-Simeth (Rolaids Advanced 1000-200-40 mg) 1 Chw Chw 1 TAB PO DIRECTED PRN for Indigestion Cholecalciferol (Vitamin D3) 1,000 Inter.unit Tab 1000 UNITS PO DAILY Fish Oil (Gaffney-3) 1 Ea Cap 1 CAP PO DAILY, CAP Prednisolone Acetate (Ophth) (Pred Forte 1% Oph) 1 % Tracy 1 DROPS OP QID, #10 ML Simvastatin (Zocor) 20 Mg Tab 20 MG PO HS Discontinued Medications: Naproxen Sodium (Aleve) 220 Mg Cap 220 MG PO DIRECTED PRN for Pain Admission Information HPI (per Admitting provider): Patient seen and examined. 66 year old female with PMHx of Sjogren's and HLD presents to the ED complaining of chest pain beginning prior to arrival. Patient was fishing with her when she developed left sided chest pain, that was pleuritic in nature and very tender to palpation. She went to her PCP who referred her to the ED for further evaluation. Patient reports earlier today she had epigastric pain and took Rolaids which alleviated the pain. She states she had similar pain a few years ago and had a negative stress test. She denies fevers, chills, URI symptoms, SOB, nausea, vomiting, diarrhea, dysuria, calf pain and edema. In the ED VS were stable, EKG was nonischemic troponin and ddimer were negative. She received morphine for pain and developed chest pressure and bradycardia. She received Narcan, IV Benadryl and dexamethasone, patient is now in afib. She reports the pain is now on the right side of her chest and very tender to palpation. She will be observed for further workup and treatment. Physical Exam (per Admitting): General Appearance: + pertinent finding (WD/WN 66 year old female lying in bed in mild distress with family at bedside ) Head: normocephalic, atraumatic Eyes: PERRL, sclerae normal ENT: normal ENT inspection, hearing grossly normal Neck: supple, no JVD Respiratory/Chest: lungs clear, normal breath sounds, no respiratory distress, no accessory muscle use, + pertinent finding (tenderness to minimal palpation diffusely over chest, no rashes ) Cardiovascular: no edema, no gallop, no JVD, no murmur, normal peripheral pulses, + tachycardia (regular rhythm ) Abdomen/GI: normal bowel sounds, non tender, soft Back: normal inspection, no muscle spasm Extremities/Musculoskelatal: no calf tenderness, normal capillary refill, no pedal edema Neurologic/Psych: alert, oriented x 3, + pertinent finding (no focal deficits noted on gross exam ) Skin: normal color, warm/dry, no rash Lymphatic: no adenopathy Hospital Course This is a 66 year old female with PMH of HLD, Sjogren's presents with pleuritic chest pain and developed new onset A. Fib, now with bradycardia New Onset A. Fib with Sinus Bradycardia 03/03 will d/c IV heparin no b-karlos due to bradycardia likely A. fib due to inflammation 03/02 started on IV heparin as per cardiology unfortunately, could not add b-karlos secondary to sinus bradycardia this AM, HRs in the upper 40s 03/01 patient developed A. fib with rapid ventricular response overnight given IVFs and potassium with good response she is now in sinus rhythm Now developing sinus bradycardia - HRs went down to the 30s, but now are up in the 50s echo performed showing no acute findings cardiology consulted for further input Pleuritic Chest Pain 03/03 Pleurisy, appreciate rheumatology input, autoimmune component will continue Ibuprofen TID and Colchicine BID outpatient PCP and rheumatology input 03/02 possibly related to her Sjogren's? will consult rheumatology for further input 03/01 possible pneumonia? Chest CT shows bibasilar densities possible pneumonia vs. atelectasis there are no other signs of infection, no leukocytosis, no fevers the pain is actually reproducible; muscle strain is possible also c/o heartburn added Protonix Toradol PRN HLD continue statin DVT ppx Lovenox FULL CODE Total time spent on discharge = 43 minutes This includes examination of the patient, discharge planning, medication reconciliation, and communication with other providers. Discharge Instructions Please follow-up with Dr. Ga on March 05 @ 2:45PM * You will be discharged on ibuprofen three times a day and colchicine twice daily * You will also be prescribed Protonix for stomach protection * Dr. Ray's office, rheumatology, will call with an appointment date and time * Dr. Grover's office, cardiology, will also call with an appointment date and time
[2017-03-03 13:30] VITALS: BP 125/68; PULSE 53; TEMP 36.4; O2SAT 95
[2017-03-04] MEDS ORDERED: ENOXAPARIN 40 MG/0.4 ML SYR SQ SCH (09:00)
[2017-07-17] MEDS ORDERED: CHOL100010 PO (13:02)
[2017-07-17] MEDS ORDERED: BIOT1CAP8 PO (13:02)
[2017-08-13] MEDS ORDERED: PRED1SUS3 OPL (08:13)
[2017-08-13] MEDS ORDERED: BECL1AER5 NAE (08:14)
[2017-09-08] MEDS ORDERED: POTA10CA28 PO (15:39)
== END 2017-03-03 14:02 | disposition home or self-care (01) | DRG 204 ==
LOC: ENRESERVTM → ENRESERVDT → EDBD 16:18 → C.EDB 16:19 → C.MED 21:18 → OBSVTOIN 03-02 07:32
PROVIDERS: ADMIT Internal Medicine; ATTEND Family Medicine
DX: R07.81 Pleurodynia (principal); E78.5 Hyperlipidemia, unspecified; R09.1 Pleurisy; E03.9 Hypothyroidism, unspecified; Z90.49 Acquired absence of other specified parts of digestive tract; M35.00 Sjogren syndrome, unspecified; T40.2X5A Adverse effect of other opioids, initial encounter; Z82.49 Family history of ischemic heart disease and other diseases of the circulatory system; Z79.82 Long term (current) use of aspirin; I48.91 Unspecified atrial fibrillation; R00.1 Bradycardia, unspecified; Z90.710 Acquired absence of both cervix and uterus

== ENCOUNTER → 2017-03-30 | Outpatient (CLI) | payer BC ==
[~2017-03-30] MED LIST changes: +BECL1AER5 NAE; +BIOT1CAP8 PO; +BIOT300T2 PO; +CAL1CHW4 PO; +CHOL100010 PO; +CLC6 PO; -CYCL0.052 OP; +IBUP-1105 PO; +OMEG10007 PO; +POTA10CA28 PO; +PRED1SUS3 OP; +PRED1SUS3 OPL; -QSTP PO; +VTMD1000 PO
--- NOTE | 2017-03-30 12:54 | DIAGNOSTIC IMAGING REPORT ---
CHEST CT WITHOUT CONTRAST CT DOSE: 324.85 mGycm HISTORY: Abnormal CT. Follow-up. Left-sided chest pain. TECHNIQUE: Multiaxial CT images of the chest were performed without contrast. COMPARISON: Chest CT 02/28/2017. FINDINGS: The central airways are patent. No pleural effusions. No pneumothorax. Near-complete resolution of the left basilar airspace opacities. There is a 6 mm nodular density remaining within the left lower lobe on image 43. A 2 cm peripheral focal airspace opacity within the right lower lobe and a 1.4 cm peripheral focal airspace opacity within the right middle lobe on image 39 are not significant changed. Groundglass densities at the right lung base have resolved. No new focal lung consolidations. No fractures within the visualized osseous structures. Cholecystectomy. The liver and spleen are unremarkable. No mediastinal or hilar lymphadenopathy. Normal caliber thoracic aorta. IMPRESSION: Improved aeration within the lung bases. However, there are a few focal airspace opacities remaining within the periphery of the lung bases as described above. This likely represents a residual/resolving pneumonia. Follow-up chest CT in 1-2 months is recommended to ensure resolution. In addition, these focal airspace opacities demonstrate a peripheral location and raises a possibility of small pulmonary infarcts. If there is clinical concern for pulmonary embolus, then a dedicated chest CTA of the pulmonary arteries is recommended for further evaluation. Electronically signed by: Alonzo Blackmon M.D. 03/30/2017 12:52 PM Dictated Date/Time: 03/30/2017 12:44 PM
== END | disposition home or self-care (01) ==
LOC: C.CTS 12:25
PROVIDERS: ATTEND Internal Medicine
DX: R09.1 Pleurisy (principal); J98.4 Other disorders of lung

== ENCOUNTER → 2017-07-20 | Outpatient (CLI) | payer OTHER ==
[~2017-07-20] MED LIST changes: -BIOT300T2 PO; -CAL1CHW4 PO; -CLC6 PO; -IBUP-1105 PO; -POTA10CA28 PO; -PRED1SUS3 OP; -PRT40 PO; -VTMD1000 PO
--- NOTE | 2017-07-20 10:40 | DIAGNOSTIC IMAGING REPORT ---
(CHEST) THORAX WITHOUT CT DOSE: 219.03 mGy.cm HISTORY: Dyspnea. Lung nodule. R93.[address] SCAN, CHEST TECHNIQUE: Multiaxial CT images of the chest were performed without contrast. A dose lowering technique was utilized adhering to the principles of ALARA. COMPARISON: 03/30/2017 FINDINGS: Mid to upper lungs remain clear. Lung bases continue to show a pleural-based nodule measuring 1.3 cm of the anterior right gastric angle. This is unchanged. 6 mm pleural-based density left lateral costophrenic angle also unchanged. Right medial paraspinal soft tissue density measuring 1.9 x 1.3 cm also essentially unchanged. Lungs otherwise remain clear. No significant medial mediastinal or hilar adenopathy. Limited evaluation the upper abdomen shows evidence for prior cholecystectomy. Mild splenic prominence unchanged in the prior exam. IMPRESSION: 1. 3 pleural-based densities right as well as left base essentially unchanged from the prior study. 2. CT chest is otherwise negative. 3. Given their relative stability compared to the prior exam, either PET scan of the chest is suggested versus a close repeat CT follow-up is suggested. The above report was generated using voice recognition software. It may contain grammatical, syntax or spelling errors. Electronically signed by: Jarrod Robins M.D. 07/20/2017 10:38 AM Dictated Date/Time: 07/20/2017 10:29 AM
== END | disposition home or self-care (01) ==
LOC: C.CTS 10:04
PROVIDERS: ATTEND Internal Medicine
DX: R93.8 Abnormal findings on diagnostic imaging of other specified body structures (principal)

== ENCOUNTER → 2017-08-13 | Day surgery (SDC) | payer OTHER ==
[2017-07-17 13:02] VITALS: Ht 154.9 cm; Wt 56.8 kg
[~2017-08-13] VITALS: Ht 154.9 cm; Wt 56.8 kg
[~2017-08-13] MED LIST changes: +500ML BSS 0.3ML EPI 1:1000PF IRRIG ONE; +ACETAMINOPHEN 325 MG TAB PO PRN; +AMVISC PLUS 0.8ML SYRINGE INT OCU ONE; +ATROPINE SULFATE 0.1 MG/ML 5ML SYR IV PRN; +BRIMONIDINE TART 0.2% OP SOLN PER DROP CHARGE ONE; +BSS FLUSH ONE; +ENDOCOAT 0.85ML SYRINGE INT OCU ONE; +EpHEDrine SULFATE INJ 50 MG/ML AMP IV PRN; +EpINEphrine INJ 1MG/ML AMP 1 MG/ML AMP ONE; +LACTATED RINGER'S 1000ML 500 ML IV SCH; +LIDOCAINE 4% OP SOLN DROP CHARGE ONE; +LIDOCAINE 4% OP SOLN DROP CHARGE OPL SCH; +LIDOCAINE HCL 1% MPF 2 ML VIAL ONE; +MIDAZOLAM HCL 1 MG/ML 2ML VIAL ONE; +MOXIFLOXACIN OPH SOLN PER DROP CHARGE ONE; +POVIDONE-IODINE OP SOLN 30 ML BTL ONE; +PROPARACAINE 0.5% OP SOLN PER DROP CHARGE OPL SCH; +PROPARACAINE HCL 0.5% OP SOLN 15 ML BTL OPL ONE; +TOBRAMYCIN/DEXAMETHASONE OPH OINT PER APPLN CHARGE ONE
[2017-08-13] MEDS: PHENYLEPHRINE HCL 2.5% OP SOLN PER DROP CHARGE OPL SCH ×2 (08:25→08:30)
[2017-08-13] MEDS: TROPICAMIDE 1% OP SOLN PER DROP CHARGE OPL SCH ×2 (08:26→08:31)
[2017-08-13] MEDS: CYCLOPENTOLATE HCL 1% OP SOLN PER DROP CHARGE OPL SCH ×2 (08:27→08:32)
[2017-08-13] MEDS: KETOROLAC 0.5% OP SOLN PER DROP CHARGE OPL SCH ×2 (08:28→08:33)
[2017-08-13] MEDS: MOXIFLOXACIN OPH SOLN PER DROP CHARGE OPL SCH ×2 (08:29→08:44)
--- NOTE | 2017-08-13 08:54 | History & Physical Bridge - SC ---
H&P Re-Evaluation Bridge Note: I have examined the patient, reviewed the History & Physical and in the interval since the performance of the History & Physical I have noted the following changes of clinical significance: No changes noted
[2017-08-13 10:04] VITALS: TEMP 36.5
--- NOTE | 2017-08-13 10:04 | Discharge Instructions-SurgCtr ---
Discharge Instructions Date of Service Aug 13, 2017. Visit Reason for Visit: Cataract Left Eye Discharge Discharge Diagnosis / Problem: cataract left eye Discharge Goals Goal(s): Improve function Activity Recommendations Activity Limitations: per Instructions/Follow-up section Lifting Limitations: no more than 5 pounds Anesthesia . Post Anesthesia Instructions: If you have had General Anesthesia or IV Sedation: * Do not drive today. * Resume driving when surgeon permits. * Do not make important decisions or sign legal documents today. * Call surgeon for: 1. Temperature elevations greater than 101 degrees F. 2. Uncontrollable pain. 3. Excessive bleeding. 4. Persistent nausea and vomiting. 5. Medication intolerance (nausea, vomiting or rash). * For nausea and vomiting use only clear liquids such as: tea, soda, bouillon until nausea subsides, then gradually increase diet as tolerated. * If you have any concerns or questions, call your surgeon's office. If physician is unavailable and it is an emergency, call 911 or go to the nearest emergency room. . Instructions / Follow-Up Instructions / Follow-Up ACTIVITY RECOMMENDATIONS: * Light activities * You may walk outside, read, watch television. * Mild irritation and blurred vision are common for the first few days, redness around the white part of the eye is common. MEDICATIONS: Resume previous medications unless instructed otherwise by your surgeon. Eye drops (today and tomorrow): Polytrim - one drop in operative eye every 2 hours while awake Prednisolone 1% - one drop in operative eye every 2 hours while awake SPECIAL CARE INSTRUCTIONS: * If any problems or concerns, please call Dr. Henao's office at . * Keep plastic shield taped over eye to sleep at night. * Keep plastic shield taped over eye except to administer eye drops. * Keep plastic shield on until office visit the following day. FOLLOW UP VISIT: Follow-up with Dr. Henao in the [place] office as scheduled. If not already scheduled, please call the office at . Diet Recommendations Home Diet: resume previous diet Procedures Procedures Performed: Left Cataract Phacoemulsification With Intraocular Lens Implant Pending Studies Studies pending at discharge: no Medical Emergencies . Who to Call and When: Medical Emergencies: If at any time you feel your situation is an emergency, please call 911 immediately. . Non-Emergent Contact Non-Emergency issues call your: Automatic Grinder Operator . . "Provider Documentation" section prepared by Hima Henao. .
--- NOTE | 2017-08-13 10:08 | [facility] Operative Report ---
Operative Report Operative Date Aug 13, 2017. Pre-Operative Diagnosis Cataract Left Eye and astigmatism Post-Operative Diagnosis Same Procedure(s) Performed Left Cataract Phacoemulsification With Intraocular Lens Implant with femtosecond laser Surgeon Dr. Henao Floorleader Surgeon(s) None Estimated Blood Loss 0 Findings cataract left eye Fluids (cc crystalloids) see anesthesia record Specimens Same Drains none Anesthesia local with sedation Complication(s) None Disposition Recovery Room / PACU Implants kathleen [id number] 20.5 Indications decreased vision left eye Description of Procedure After informed consent was obtained in the holding area the patient was taken to the femtosecond laser room where the left eye was docked with the laser. The laser made the primary incision at the 3 o'clock position of the left eye, capsulorrhexis, and prechop of the lens. The patient was then wheeled back to the operating room where cardiac monitoring leads and oxygen by nasal cannula was administered by Anesthesia. Gentle IV sedation was given, and the patient's left eye was prepped and draped in usual sterile fashion. A wire lid speculum was placed into the left eye and the operating microscope was swung into position. Using 0.12 forceps and a Supersharp blade a paracentesis port was made 2 o'clock hours away from the 3 o'clock position of the patient's left eye. 1% non-preserved Lidocaine was then injected into the anterior chamber for anesthesia. Endocoat was injected into the anterior chamber. A Emanuel spatula was then used to enter the shelved clear corneal incision at the 3 o'clock position of the left eye. Amvisc was injected into the anterior chamber and a cystotome and Utrata forceps were used to perform a curvilinear capsulorrhexis. BSS on a hydrodissection cannula was used to hydrodissect the lens nucleus away from the capsular bag. The phacoemulsification handpiece was then used in a stop and chop fashion to remove the lens nucleus. The irrigation and aspiration handpiece was then used to remove the residual cortical material. Amvisc was injected into the capsular bag and anterior chamber and a KATHLEEN [id number] 20.5 Diopter intraocular lens was injected into the capsular bag. Irrigation and aspiration handpiece was used to remove the residual viscoelastic material. The wounds were hydrated and noted to be watertight. Resure sealant was placed over the incisions. The wire lid speculum was removed from the eye. Vigamox, Brimonidine, and TobraDex ointment were placed on the eye and it was shielded. It should be noted that EndoCoat was used extensively during the case to protect the cornea endothelium. DISPOSITION: The patient tolerated the procedure well and was wheeled to the post anesthesia care unit in stable condition. I attest to the content of the Intraoperative Record and any orders documented therein. Any exceptions are noted below. I attest to the content of the Intraoperative Record and any orders documented therein. Any exceptions are noted below.
[2017-08-13 10:20] VITALS: BP 129/78; PULSE 51; O2SAT 97
--- NOTE | 2017-08-13 10:27 | Anesthesia Progress Nt - [facility] ---
Anesthesia Post Op Note Date & Time Aug 13, 2017 at 10:26 Vital Signs Pain Intensity: 0 Vital Signs Past 12 Hours Date Time Temp Pulse Resp B/P (MAP) Pulse Ox O2 Delivery O2 Flow Rate FiO2 08/13/17 10:20 51 16 129/78 (95) 97 Room Air 08/13/17 10:04 36.5 48 16 138/71 (93) 98 Room Air 08/13/17 09:29 59 16 142/76 100 Room Air 08/13/17 09:25 57 16 145/78 97 Room Air 08/13/17 08:15 36.5 51 16 144/83 (103) 99 Room Air Notes Mental Status: alert / awake / arousable, participated in evaluation Pt Amnestic to Procedure: Yes Nausea / Vomiting: adequately controlled Pain: adequately controlled Airway Patency, RR, SpO2: stable & adequate BP & HR: stable & adequate Hydration State: stable & adequate Anesthetic Complications: no major complications apparent
== END | disposition home or self-care (01) ==
LOC: X.SURG 07:40
PROVIDERS: ATTEND Ophthalmology
DX: H25.12 Age-related nuclear cataract, left eye (principal); Z83.3 Family history of diabetes mellitus; M35.00 Sjogren syndrome, unspecified; Z90.49 Acquired absence of other specified parts of digestive tract; M19.90 Unspecified osteoarthritis, unspecified site; E05.90 Thyrotoxicosis, unspecified without thyrotoxic crisis or storm; Q87.1 Congenital malformation syndromes predominantly associated with short stature; I48.91 Unspecified atrial fibrillation

== ENCOUNTER → 2017-08-27 | Day surgery (SDC) | payer OTHER ==
[2017-08-15 11:09] VITALS: Ht 154.9 cm; Wt 56.8 kg
[~2017-08-27] VITALS: Ht 154.9 cm; Wt 56.8 kg
[~2017-08-27] MED LIST changes: -LIDOCAINE 4% OP SOLN DROP CHARGE OPL SCH; +LIDOCAINE 4% OP SOLN DROP CHARGE OPR SCH; +POTA10CA28 PO; -PRED1SUS3 OPL; -PROPARACAINE 0.5% OP SOLN PER DROP CHARGE OPL SCH; +PROPARACAINE 0.5% OP SOLN PER DROP CHARGE OPR SCH; -PROPARACAINE HCL 0.5% OP SOLN 15 ML BTL OPL ONE; +PROPARACAINE HCL 0.5% OP SOLN 15 ML BTL OPR ONE
[2017-08-27] MEDS: PHENYLEPHRINE HCL 2.5% OP SOLN PER DROP CHARGE OPR SCH ×2 (09:03→09:09)
[2017-08-27] MEDS: TROPICAMIDE 1% OP SOLN PER DROP CHARGE OPR SCH ×2 (09:04→09:10)
[2017-08-27] MEDS: CYCLOPENTOLATE HCL 1% OP SOLN PER DROP CHARGE OPR SCH ×2 (09:05→09:11)
[2017-08-27] MEDS: KETOROLAC 0.5% OP SOLN PER DROP CHARGE OPR SCH ×2 (09:07→09:12)
[2017-08-27] MEDS: MOXIFLOXACIN OPH SOLN PER DROP CHARGE OPR SCH ×2 (09:08→09:29)
--- NOTE | 2017-08-27 10:36 | Discharge Instructions-SurgCtr ---
Discharge Instructions Date of Service Aug 27, 2017. Visit Reason for Visit: Right Cataract Discharge Discharge Diagnosis / Problem: cataract right eye Discharge Goals Goal(s): Improve function Medications Stopped Medications Name(s): Last took oral medications yesterday. Activity Recommendations Activity Limitations: per Instructions/Follow-up section Lifting Limitations: no more than 5 pounds Anesthesia . Post Anesthesia Instructions: If you have had General Anesthesia or IV Sedation: * Do not drive today. * Resume driving when surgeon permits. * Do not make important decisions or sign legal documents today. * Call surgeon for: 1. Temperature elevations greater than 101 degrees F. 2. Uncontrollable pain. 3. Excessive bleeding. 4. Persistent nausea and vomiting. 5. Medication intolerance (nausea, vomiting or rash). * For nausea and vomiting use only clear liquids such as: tea, soda, bouillon until nausea subsides, then gradually increase diet as tolerated. * If you have any concerns or questions, call your surgeon's office. If physician is unavailable and it is an emergency, call 911 or go to the nearest emergency room. . Instructions / Follow-Up Instructions / Follow-Up ACTIVITY RECOMMENDATIONS: * Light activities * You may walk outside, read, watch television. * Mild irritation and blurred vision are common for the first few days, redness around the white part of the eye is common. MEDICATIONS: Resume previous medications unless instructed otherwise by your surgeon. Eye drops (today and tomorrow): Polytrim - one drop in operative eye every 2 hours while awake Prednisolone 1% - one drop in operative eye every 2 hours while awake SPECIAL CARE INSTRUCTIONS: * If any problems or concerns, please call Dr. Henao's office at . * Keep plastic shield taped over eye to sleep at night. * Keep plastic shield taped over eye except to administer eye drops. * Keep plastic shield on until office visit the following day. FOLLOW UP VISIT: Follow-up with Dr. Henao in the [place] office as scheduled. If not already scheduled, please call the office at . Diet Recommendations Home Diet: resume previous diet Procedures Procedures Performed: Right Cataract Phacoemulsification With Intraocular Lens Implant; Toric Lens Pending Studies Studies pending at discharge: no Medical Emergencies . Who to Call and When: Medical Emergencies: If at any time you feel your situation is an emergency, please call 911 immediately. . Non-Emergent Contact Non-Emergency issues call your: Process Tank Tender . . "Provider Documentation" section prepared by Hima Henao. .
--- NOTE | 2017-08-27 10:40 | [facility] Operative Report ---
Operative Report Operative Date Aug 27, 2017. Pre-Operative Diagnosis Cataract Right Eye and astigmatism right eye Post-Operative Diagnosis Same Procedure(s) Performed Right Cataract Phacoemulsification With Intraocular Lens Implant; Toric Lens and femtosecond laser Surgeon Dr. Henao Electrical Sign Servicer Surgeon(s) None Estimated Blood Loss 0 mL Findings cataract right eye Fluids (cc crystalloids) see anesthesia record Specimens None Drains none Anesthesia local with sedation Complication(s) None Disposition Recovery Room / PACU Implants KATHLEEN [id number] 22.5 Indications decreased vision right eye Description of Procedure After informed consent was obtained in the holding area the patient was wheeled back to the femtosecond laser room and the right eye was docked with the laser. The laser performed the primary incision, capsulorrhexis, and prechop of the lens. The patient was then taken to the operating room where cardiac monitoring leads and oxygen by nasal cannula was administered by Anesthesia. Gentle IV sedation was given, and the patient's right eye was prepped and draped in usual sterile fashion. A wire lid speculum was placed into the right eye and the operating microscope was swung into position. Using 0.12 forceps and a Supersharp blade a paracentesis port was made 2 o'clock hours away from the 9 o'clock position of the patient's right eye. 1% non-preserved Lidocaine was then injected into the anterior chamber for anesthesia. Endocaoat was then injected into the anterior chamber. A Emanuel spatula was then used to enter the shelved clear corneal incision at the 9 o'clock position of the right eye. Amvisc was injected into the anterior chamber and a cystotome and Utrata forceps were used to perform a curvilinear capsulorrhexis. BSS on a hydrodissection cannula was used to hydrodissect the lens nucleus away from the capsular bag. The phacoemulsification handpiece was then used in a stop and chop fashion to remove the lens nucleus. The irrigation and aspiration handpiece was then used to remove the residual cortical material. Amvisc was injected into the capsular bag and anterior chamber and a KATHLEEN [id number] 22.5 Diopter intraocular lens was injected into the capsular bag. Irrigation and aspiration handpiece was used to remove the residual viscoelastic material. The wounds were hydrated and noted to be watertight. The wire lid speculum was removed from the eye. Vigamox, Brimonidine, and TobraDex ointment were placed on the eye and it was shielded. It should be noted that EndoCoat was used extensively during the case to protect the cornea endothelium. DISPOSITION: The patient tolerated the procedure well and was wheeled to the post anesthesia care unit in stable condition. I attest to the content of the Intraoperative Record and any orders documented therein. Any exceptions are noted below. I attest to the content of the Intraoperative Record and any orders documented therein. Any exceptions are noted below.
[2017-08-27 10:56] VITALS: BP 116/74; PULSE 50; O2SAT 97
--- NOTE | 2017-08-27 11:14 | Anesthesia Progress Nt - [facility] ---
Anesthesia Post Op Note Date & Time Aug 27, 2017 at 11:14 Vital Signs Pain Intensity: 0 Vital Signs Past 12 Hours Date Time Temp Pulse Resp B/P (MAP) Pulse Ox O2 Delivery O2 Flow Rate FiO2 08/27/17 10:56 50 16 116/74 (88) 97 Room Air 08/27/17 10:37 36.6 50 16 136/74 (94) 98 Room Air 08/27/17 09:57 58 16 153/78 100 Room Air 08/27/17 09:51 58 16 139/76 96 Room Air 08/27/17 08:53 36.6 51 18 133/84 (100) 98 Room Air Notes Mental Status: alert / awake / arousable, participated in evaluation Pt Amnestic to Procedure: Yes Nausea / Vomiting: adequately controlled Pain: adequately controlled Airway Patency, RR, SpO2: stable & adequate BP & HR: stable & adequate Hydration State: stable & adequate Anesthetic Complications: no major complications apparent
== END | disposition home or self-care (01) ==
LOC: X.SURG 08:29
PROVIDERS: ATTEND Ophthalmology
DX: H25.11 Age-related nuclear cataract, right eye (principal); H52.201 Unspecified astigmatism, right eye; M35.00 Sjogren syndrome, unspecified; E78.5 Hyperlipidemia, unspecified; E78.00 Pure hypercholesterolemia, unspecified; Z79.82 Long term (current) use of aspirin

== ENCOUNTER → 2018-03-18 | Outpatient (CLI) | payer OTHER ==
[~2018-03-18] MED LIST changes: -500ML BSS 0.3ML EPI 1:1000PF IRRIG ONE; -ACETAMINOPHEN 325 MG TAB PO PRN; -AMVISC PLUS 0.8ML SYRINGE INT OCU ONE; -ATROPINE SULFATE 0.1 MG/ML 5ML SYR IV PRN; -BRIMONIDINE TART 0.2% OP SOLN PER DROP CHARGE ONE; -BSS FLUSH ONE; -ENDOCOAT 0.85ML SYRINGE INT OCU ONE; -EpHEDrine SULFATE INJ 50 MG/ML AMP IV PRN; -EpINEphrine INJ 1MG/ML AMP 1 MG/ML AMP ONE; -LACTATED RINGER'S 1000ML 500 ML IV SCH; -LIDOCAINE 4% OP SOLN DROP CHARGE ONE; -LIDOCAINE 4% OP SOLN DROP CHARGE OPR SCH; -LIDOCAINE HCL 1% MPF 2 ML VIAL ONE; -MIDAZOLAM HCL 1 MG/ML 2ML VIAL ONE; -MOXIFLOXACIN OPH SOLN PER DROP CHARGE ONE; -POVIDONE-IODINE OP SOLN 30 ML BTL ONE; -PROPARACAINE 0.5% OP SOLN PER DROP CHARGE OPR SCH; -PROPARACAINE HCL 0.5% OP SOLN 15 ML BTL OPR ONE; -TOBRAMYCIN/DEXAMETHASONE OPH OINT PER APPLN CHARGE ONE
--- NOTE | 2018-03-18 11:42 | DIAGNOSTIC IMAGING REPORT ---
ADDENDUM IMPRESSION 6: Suggested soft tissue lesion or focal dense breast parenchyma of the lateral right breast measuring 1.2 cm could be correlated with physical exam and mammography. Electronically signed by: Mariano Silva M.D. 03/18/2018 1:32 PM Dictated Date/Time: 03/18/2018 1:31 PM ORIGINAL REPORT (CHEST) THORAX WITHOUT CT DOSE: 209.96 mGy.cm CLINICAL HISTORY: 67 years-old Female with R91.8 Pulmonary [id number] Abnormal CAT scancomparing to CT th. Follow-up study in a patient with persistent pulmonary opacities TECHNIQUE: Multiaxial CT images of the chest were performed without contrast. A dose lowering technique was utilized adhering to the principles of ALARA. COMPARISON: CT chest 07/20/2017, 03/30/2017 and 02/28/2017 FINDINGS: Heterogeneous thyroid with scattered calcifications. No pathologic adenopathy identified. Heart is normal in size without pericardial effusion. Coronary arterial calcifications are noted. Calcifications of the tracheal bronchial tree. No pneumothorax or pleural effusion. Pleural-based 6 mm nodular density about the lateral basal segment left lower lobe, image 228 series 4 is unchanged dating back to 03/30/2017. Irregular pleural-based opacity with minimal adjacent traction bronchiectasis and pleural-parenchymal scarring within the medial basal segment right lower lobe has decreased in size, now measuring 1.3 x 0.7 cm on image 21 series 4, most recently measuring 2.8 x 1.2 cm on study dated 07/20/2017. Additionally, the pleural-based opacity within the lateral segment right middle lobe on image 203 series 4 now measures 9 x 5 mm, previously measuring 1.4 x 1.2 cm on study dated 07/20/2017. No new or enlarging pulmonary opacities or densities are noted. Suggested subpleural fat at the medial left lung base measuring 9 mm is unchanged on image 207 series 4. Central airways are patent. Minimal mucus plugging of the lower lobes. Prior cholecystectomy. No acute process of the imaged upper abdomen. There is a suggested soft tissue lesion of the lateral right breast measuring 1.2 x 0.9 cm on image 136 series 4. IMPRESSION: 1. Decreased size of the pleural-based consolidative opacities about the medial basal segment right lower lobe and lateral segment right middle lobe as detailed above suggesting areas of resolving pneumonia, now with postinflammatory scarring. Minimal traction bronchiectasis is seen adjacent to the opacity of the basal right lower lobe. 2. Stable pleural-based 6 mm nodule of the lateral basal segment left lower lobe, unchanged dating back to 03/30/2017. 3. No new or enlarging pulmonary nodules or opacities. 4. No pathologic adenopathy. 5. Additional findings as above. Electronically signed by: Mariano Silva M.D. 03/18/2018 11:40 AM Dictated Date/Time: 03/18/2018 11:28 AM
== END | disposition home or self-care (01) ==
LOC: C.CTS 11:10
PROVIDERS: ATTEND Internal Medicine Pulmonary Disease
DX: R91.8 Other nonspecific abnormal finding of lung field (principal); R93.8 Abnormal findings on diagnostic imaging of other specified body structures